=== PATIENT | male | born 1945 | race Caucasian/White ===

== ENCOUNTER 2022-10-10 10:37 | Inpatient (IN) ==
--- NOTE | 2022-10-10 11:58 | DR.GENAD ---
HPI Time Seen Time Seen by Provider: 10/10/22 11:57 PCP Primary Care Physician: Vlad HPI Comment HPI Comment: Pt accompanied by daughter.Acccording to her ,patient has hx of hemorrhagic stroke .has been basically bedbound .Has noticed dependent edema on his back and legs.Patient was started on lasix and currently on lasix 40 2 x per day .Family concerned that swelling has worsened .Here to have him checked .Pt was noted to have oxygen sat initially but then improved with use of oxygen to 2 L Complaint/Symptoms Chief Complaint Doctors Comments: swelling over his legs and groin Chief Complaint:: Patient's daughter states that he has been having increasing edema the past 2-3 weeks now. His primary prescribed lasix 40mg PO per day, but his urine output has become deminished as well as his intake. He presents with +5 pitting edema in his bilateral extremeties, and +3 pitting edema in his left arm. The daughter also states that he has become confused over the past 2-3 days. Nurses notes reviewed Nurses Notes Review: Yes Source History Provided: Family Member Mode of Arrival Mode of Arrival: Wheelchair Timing Onset of Chief Complaint: 09/24/22 Came on: Gradually Duration Duration: Since Onset Duration: Weeks Severity Severity: Moderate PMH PMH Past Medical History: Yes Past Medical History: Coronary Artery Disease, CVA, Diabetes, Hypertension and [place] Past Medical History Comment: enlarged prostate Past Surgical History: Yes Surgical History: Angioplasty/Stents and Tonsillectomy Family History History of Family Medical Conditions: Yes Family Medical History: Diabetes Mellitus, Cancer, [place] and Coronary Artery Disease Social History Does patient currently use any type of tobacco product: No Have you used tobacco products in the last 12 months: No Type of Tobacco Use: None Does any household member use tobacco: No Alcohol Use: None Do you use any recreational Drugs:: No Lives With: Family Lives Where: Home Infectious screening In the last 2 months have you had wt loss of >10#?: NO Have you had fever, night sweats or hemotysis?: No Have you traveled outside the country in the last 6 months?: No Isolation: Standard ROS Review of Systems Constitutional: No Symptoms Reported Eyes: No Symptoms Reported ENTM: No Symptoms Reported Respiratoy: Short of Breath Cardiovascular: No Symptoms Reported Gastrointestinal/Abdominal: No Symptoms Reported Genitourinary: No Symptoms Reported Neurological: No Symptoms Reported Musculoskeletal: No Symptoms Reported Integumentary: No Symptoms Reported Endocrine: No Symptoms Reported PE Vital Signs Vitals: Temperature 98.2 F Pulse Rate [Left] 70 Pulse Rate 66 Respiratory Rate 21 Blood Pressure [Left Arm] 135/74 Blood Pressure 131/79 O2 Sat by Pulse Oximetry 95 General Limitations: No Limitations General Appearance: Alert and In No Apparent Distress Head Head Exam: Normal Inspection, Atraumatic and Normocephalic Eyes Eye exam: Normal Appearance, PERRL and EOMI ENT ENT Exam: Normal Exam, Normal Oropharynx and Normal External Ear Exam External Ear Exam: Normal External Inspection TM/Canal Exam: Bilateral: Normal Neck Neck Exam: Normal Inspection and Full ROM Chest Chest Inspection: Normal Inspection and Symmetric Chest Wall Rise Respiratory Respiratory Exam: Bilateral: Crackles (no use of acessory muscles of respirations ) Cardiovascular Cardiovascular Exam: +S1 and +S2 Abdominal Exam Abdominal Exam: Soft and Other (protuberant ) Extremities Extremities Exam: Edema Neurologic Neurological Exam: Alert Skin Skin Exam: Normal Color MDM Additional Information Findings: bedbound Differential Diagnosis Differential Diagnosis: peripheral and dependednt edema,shortness of breath.abnormal lung sounds ROR Labs Reviewed Result Diagrams: 10/10/22 12:28 10/10/22 12:28 Laboratory: WBC 6.1 X10^3/uL (3.6-10.0) 10/10/22 12:28 RBC 3.50 X10^6/uL (4.7-6.0) L 10/10/22 12:28 Hgb 10.1 g/dL (13.5-18.0) L 10/10/22 12:28 Hct 30.6 % (42.0-54.0) L 10/10/22 12:28 MCV 87.5 fL (80.0-100.0) 10/10/22 12:28 MCH 29.0 pg (27.0-34.0) 10/10/22 12:28 MCHC 33.1 g/dL (33.0-35.0) 10/10/22 12:28 RDW 14.1 % (11.6-16.5) 10/10/22 12:28 Plt Count 185 X10^3/uL (150.0-450.0) 10/10/22 12:28 MPV 8.4 fL (7.4-11.0) 10/10/22 12: Neut % (Auto) 62.3 % (42.0-75.0) 10/10/22 12:28 Lymph % (Auto) 27.1 % (21.0-51.0) 10/10/22 12:28 [place] % (Auto) 8.4 % (0.0-13.0) 10/10/22 12: Eos % (Auto) 1.8 % (0.9-2.9) 10/10/22 12:28 Baso % (Auto) 0.4 % (0.2-1.0) 10/10/22 12:28 Neut # (Auto) 3.8 x10^3/uL (2.2-4.8) 10/10/22 12: Lymph # (Auto) 1.7 X10^3/uL (1.3-2.9) 10/10/22 12: [place] # (Auto) 0.5 x10^3/uL (0.3-0.8) 10/10/22 12:28 Eos # (Auto) 0.1 x10^3/uL (0.0-0.2) 10/10/22 12:28 Baso # (Auto) 0.0 X10^3/uL (0.0-0.1) 10/10/22 12:28 Absolute Nucleated RBC 0.0 /100WBC 10/10/22 12:28 D-Dimer 1.48 ug/ml (0.0-0.57) H 10/10/22 12:50 Sodium 140 mmol/L (136-145) 10/10/22 12:28 Corrected Sodium 140 mmol/L (136-145) 10/10/22 12:28 Potassium 4.8 mmol/L (3.5-5.1) 10/10/22 12:28 Chloride 103 mmol/L (98-107) 10/10/22 12:28 Carbon Dioxide 32.2 mmol/L (21-32) H 10/10/22 12:28 BUN 34 mg/dL (7-18) H 10/10/22 12:28 Creatinine 1.58 mg/dL (0.70-1.30) H 10/10/22 12:28 Est GFR (MDRD) Af Amer 55 (>60) L 10/10/22 12:28 Est GFR (MDRD) Non-Af 45 (>60) L 10/10/22 12:28 Glucose 115 mg/dL (65-99) H 10/10/22 12:28 Hemoglobin A1c 6.1 % 10/10/22 12:28 Calcium 8.2 mg/dL (8.5-10.1) L 10/10/22 12:28 Corrected Calcium 8.9 mg/dL (8.5-10.1) 10/10/22 12:28 Total Bilirubin 0.30 mg/dL (0.2-1.0) 10/10/22 12:28 AST 15 Units/L (15-37) 10/10/22 12:28 ALT 16 Units/L (12-78) 10/10/22 12:28 Alkaline Phosphatase 78 Units/L (46-116) 10/10/22 12:28 Creatine Kinase 73 Units/L (39-308) 10/10/22 12:28 Troponin I High Sens 14.5 ng/L (4.0-60.0) 10/10/22 12:28 Troponin I High Sens 15.1 ng/L (4.0-60.0) 10/10/22 12:28 B-Natriuretic Peptide 313 pg/mL (0-79) H 10/10/22 12:28 Total Protein 6.6 g/dL (6.4-8.2) 10/10/22 12:28 Albumin 3.1 g/dL (3.4-5.0) L 10/10/22 12:28 Globulin 3.5 g/dL (2.5-4.5) 10/10/22 12:28 Albumin/Globulin Ratio 0.9 Ratio (1.1-2.1) L 10/10/22 12:28 TSH 3rd Generation 4.859 uIU/mL (0.358-3.74) H 10/10/22 12:28 Opioid Opioid Risk Tool Total: 0 Total Score Risk Category: Low Risk Copyright: Scotty OLIVER predicting aberrant behaviors Discharge Plan Diagnosis Discharge Problem: Community acquired pneumonia, Anemia, Abnormal TSH, Dependent edema, Pleural effusion, CHF, acute Discharge Plan Patient Disposition: 09 ADMITTED INPATIENT Condition: Stable Prescriptions: No Action acetaminophen-codeine 300-30 mg tablet 1 tab PO Q6H PRN (Reason: pain) Qty: 14 0RF cyclobenzaprine 10 mg tablet 10 mg PO TID Qty: 30 0RF Health Concerns: Post Hospitalization: new medications and changes needed to prevent readmission or further decline. Pt educated and given instructions on all concerns. Plan of Treatment: Continue with present treatment and follow up plan. Pt is to keep follow up appointment as instructed and take medications as ordered. Orders to Discharge Patient Discharge Orders: Transfer (Routine); Ordered 10/10/22 Ordered By: Jose Yip Follow ups/Referrals Follow ups/Referrals: Everett Murillo [Primary Care Provider] - 3 days ADDITIONAL NOTES Additional Notes Additional Notes: anemia ,hypothyroidism ,renal failure,community Acquired pneumoia ,pleural effusion ,depenedent edema .spoke with dr ortiz agreed to admit patient
[2022-10-10 12:56] LABS: BASOPHILS % (AUTO) 0.4 % (0.2-1.0); EOSINOPHILS # (AUTO) 0.1 x10^3/uL (0.0-0.2); EOSINOPHILS % (AUTO) 1.8 % (0.9-2.9); HEMATOCRIT 30.6 % (42.0-54.0); HEMOGLOBIN 10.1 g/dL (13.5-18.0); LYMPHOCYTES # (AUTO) 1.7 X10^3/uL (1.3-2.9); LYMPHOCYTES % (AUTO) 27.1 % (21.0-51.0); MEAN CORPUSCULAR HGB CONC 33.1 g/dL (33.0-35.0); MEAN CORPUSCULAR VOLUME 87.5 fL (80.0-100.0); MEAN PLATELET VOLUME 8.4 fL (7.4-11.0); MONOCYTES # (AUTO) 0.5 x10^3/uL (0.3-0.8); MONOCYTES % (AUTO) 8.4 % (0.0-13.0); NEUTROPHILS # (AUTO) 3.8 x10^3/uL (2.2-4.8); NEUTROPHILS % (AUTO) 62.3 % (42.0-75.0); RED CELL DISTRIBUTION WIDTH 14.1 % (11.6-16.5); WHITE BLOOD COUNT 6.1 X10^3/uL (3.6-10.0)
[2022-10-10 13:06] LABS: HEMOGLOBIN A1C 6.1 %
[2022-10-10 13:07] LABS: CARBON DIOXIDE 32.2 mmol/L (21-32); CREATININE 1.58 mg/dL (0.70-1.30)
[2022-10-10 13:08] LABS: ALBUMIN 3.1 g/dL (3.4-5.0); CALCIUM 8.2 mg/dL (8.5-10.1); COR CA(FOR HYPOALB) 8.9 mg/dL (8.5-10.1); TOTAL PROTEIN 6.6 g/dL (6.4-8.2)
[2022-10-10 13:22] LABS: TSH (3RD GENERATION) 4.859 uIU/mL (0.358-3.74)
--- NOTE | 2022-10-10 14:03 | RAD ---
HISTORYMED HX OF CAD HTN DM AK.br sob, decreased urine outputSTUDYCHEST, 1 VIEWCOMPARISONNoneFINDINGSThe trachea is midline. The cardiac silhouette is enlarged. The lungs demonstrate some asymmetric density in the right mid lower lung zones probably due pneumonia left lung appears relatively clear. The bony thorax is unremarkable.IMPRESSIONProbable right mid and lower lung zone pneumonia as aboveElectronically signed by: GENIA CABRERA (Oct 10, 2022 14:01:59)
--- NOTE | 2022-10-10 15:16 | CT ---
HISTORYSOB, ELEVATED D-DIMERSTUDYCTA CHESTCOMPARISONOne-view of the chest performed today.TECHNIQUEMultiple axial images of the chest were obtained from the thoracic inlet to the upper abdomen after the administration of IV contrast. 3D reconstructions utilizing axial MIPS imaging was performed and reviewed. Dose reduction techniques including Automated Exposure Control (AEC) and adjustment of mA and kV were utilized.FINDINGSPulmonary arteries: There is fair opacification of the pulmonary arteries to the subsegmental level without evidence of pulmonary emboli.Thoracic aorta: No acute findings. Normal caliber of the aorta with moderate generalized atherosclerosis.Heart/mediastinum: Normal heart size without a significant pericardial effusion. No mass or lymphadenopathy.Lungs: Moderate/large pleural effusions are noted, right slightly greater than left, with associated atelectasis. Mild interlobular septal thickening is present, consistent with edema. No suspicious area of consolidation. No suspicious nodule or mass. No pneumothorax.Upper abdomen: No significant abnormality.Bones: No significant abnormality.Additional findings: None.IMPRESSION1. No CT evidence of pulmonary emboli.2. Moderate/large pleural effusions with mild interstitial edema and additional findings as above.Electronically signed by: Rubens Dobbs (Oct 10, 2022 15:14:33)
[2022-10-10] MEDS ORDERED: LEVAQUIN PREMIX IV 250 MG 250 MG/50 ML BAG IV SCH (17:00)
[2022-10-10] MEDS ORDERED: LASIX IVP ONE (17:54)
[2022-10-10] MEDS ORDERED: COREG TAB 25 MG ONE ×2 (17:54→18:24)
[2022-10-10] MEDS ORDERED: LEVAQUIN PREMIX IV 250 MG 250 MG/50 ML BAG IV ONE (17:55)
[2022-10-10] MEDS ORDERED: NS 250 ML IV 250 ML IV ONE (17:57)
[2022-10-10 17:58] VITALS: BMI 33.1
[2022-10-10] MEDS ORDERED: COREG TAB 25 MG PO SCH (18:00)
[2022-10-10] MEDS: LEVAQUIN PREMIX IV 250 MG 250 MG/50 ML BAG IV SCH (18:08)
[2022-10-10] MEDS: LASIX IVP SCH (18:11)
[2022-10-10] MEDS ORDERED: DUONEB 0.5 MG/3 MG (3 mL) NEB ONE (20:39)
[2022-10-10] MEDS ORDERED: PULMICORT NEB TX 0.5 MG NEB ONE (20:39)
[2022-10-10] MEDS: PULMICORT NEB TX 0.5 MG NEB SCH (20:50)
[2022-10-10] MEDS: DUONEB 0.5 MG/3 MG (3 mL) NEB SCH (20:50)
[2022-10-10] MEDS ORDERED: CARDURA PO SCH (21:00)
[2022-10-11] MEDS: DUONEB 0.5 MG/3 MG (3 mL) NEB SCH ×6 (01:03→21:00)
[2022-10-11 06:13] LABS: BASOPHILS % (AUTO) 0.5 % (0.2-1.0); EOSINOPHILS # (AUTO) 0.2 x10^3/uL (0.0-0.2); EOSINOPHILS % (AUTO) 2.9 % (0.9-2.9); HEMATOCRIT 29.7 % (42.0-54.0); HEMOGLOBIN 9.7 g/dL (13.5-18.0); LYMPHOCYTES # (AUTO) 1.6 X10^3/uL (1.3-2.9); LYMPHOCYTES % (AUTO) 27.8 % (21.0-51.0); MEAN CORPUSCULAR HEMOGLOBIN 28.6 pg (27.0-34.0); MEAN CORPUSCULAR HGB CONC 32.8 g/dL (33.0-35.0); MEAN PLATELET VOLUME 8.4 fL (7.4-11.0); MONOCYTES # (AUTO) 0.7 x10^3/uL (0.3-0.8); MONOCYTES % (AUTO) 11.7 % (0.0-13.0); NEUTROPHILS # (AUTO) 3.2 x10^3/uL (2.2-4.8); NEUTROPHILS % (AUTO) 57.1 % (42.0-75.0); RED BLOOD COUNT 3.41 X10^6/uL (4.7-6.0); RED CELL DISTRIBUTION WIDTH 13.6 % (11.6-16.5); WHITE BLOOD COUNT 5.6 X10^3/uL (3.6-10.0)
[2022-10-11 06:17] LABS: ALANINE AMINOTRANSFERASE 12 Units/L (12-78); ALBUMIN 2.9 g/dL (3.4-5.0); ALKALINE PHOSPHATASE 76 Units/L (46-116); ASPARTATE AMINO TRANSFERASE 14 Units/L (15-37); BLOOD UREA NITROGEN 24 mg/dL (7-18); CALCIUM 8.1 mg/dL (8.5-10.1); CARBON DIOXIDE 31.2 mmol/L (21-32); CHLORIDE 104 mmol/L (98-107); CREATININE 1.13 mg/dL (0.70-1.30); SODIUM 142 mmol/L (136-145); TOTAL PROTEIN 6.3 g/dL (6.4-8.2); eGFR NON BLACK RACES > 60 (>60)
--- NOTE | 2022-10-11 07:23 | RAD ---
HISTORYSOBSTUDYAP chestCOMPARISONDecember 2021FINDINGSStable heart size. There is no significant change in extent or distribution of bilateral pulmonary infiltrates especially lower lobes. There is no new consolidation, complicating extrapulmonary air or large pleural effusion.IMPRESSIONStable appearance of bilateral pneumonia.Electronically signed by: RATNA TRACY (Oct 11, 2022 07:21:56)
[2022-10-11] MEDS ORDERED: KLONOPIN TAB 1 MG PO PRN (08:16)
[2022-10-11] MEDS: PULMICORT NEB TX 0.5 MG NEB SCH ×2 (08:55→21:00)
[2022-10-11] MEDS ORDERED: COREG TAB 25 MG PO SCH (09:00)
[2022-10-11] MEDS ORDERED: GLUCOPHAGE ONE (09:28)
[2022-10-11] MEDS: COZAAR PO SCH (09:36)
[2022-10-11] MEDS: NORVASC TAB 10 MG PO SCH (09:36)
[2022-10-11] MEDS: LEVAQUIN PREMIX IV 250 MG 250 MG/50 ML BAG IV SCH (09:36)
[2022-10-11] MEDS: VITAMIN C PO SCH (09:37)
[2022-10-11] MEDS: COREG TAB 25 MG PO SCH ×2 (09:37→20:11)
[2022-10-11] MEDS: GLUCOTROL PO SCH ×2 (09:38→20:11)
[2022-10-11] MEDS: CLARITIN PO SCH (09:39)
[2022-10-11] MEDS: LASIX IVP SCH ×2 (09:47→17:30)
[2022-10-11] MEDS: GLUCOPHAGE PO SCH (09:48)
[2022-10-11] MEDS ORDERED: NS 250 ML IV 250 ML IV ONE (18:48)
[2022-10-11] MEDS: ALBUMIN HUMAN 25%- 100 ML 100 ML IV SCH (18:55)
[2022-10-11] MEDS: LIPITOR TAB 80 MG PO SCH (20:11)
[2022-10-11] MEDS: SNACK - Diabetic Appropriate PO SCH (20:11)
[2022-10-11] MEDS: CARDURA PO SCH (20:11)
[2022-10-12] MEDS: DUONEB 0.5 MG/3 MG (3 mL) NEB SCH ×6 (00:17→21:00)
[2022-10-12 06:34] LABS: BASOPHILS % (AUTO) 0.5 % (0.2-1.0); EOSINOPHILS # (AUTO) 0.2 x10^3/uL (0.0-0.2); EOSINOPHILS % (AUTO) 3.2 % (0.9-2.9); HEMATOCRIT 29.4 % (42.0-54.0); HEMOGLOBIN 9.8 g/dL (13.5-18.0); LYMPHOCYTES # (AUTO) 1.9 X10^3/uL (1.3-2.9); LYMPHOCYTES % (AUTO) 34.1 % (21.0-51.0); MEAN CORPUSCULAR HEMOGLOBIN 28.7 pg (27.0-34.0); MEAN CORPUSCULAR HGB CONC 33.4 g/dL (33.0-35.0); MEAN CORPUSCULAR VOLUME 85.8 fL (80.0-100.0); MEAN PLATELET VOLUME 8.2 fL (7.4-11.0); MONOCYTES # (AUTO) 0.6 x10^3/uL (0.3-0.8); MONOCYTES % (AUTO) 11.6 % (0.0-13.0); NEUTROPHILS # (AUTO) 2.8 x10^3/uL (2.2-4.8); NEUTROPHILS % (AUTO) 50.6 % (42.0-75.0); RED BLOOD COUNT 3.42 X10^6/uL (4.7-6.0); RED CELL DISTRIBUTION WIDTH 13.6 % (11.6-16.5); WHITE BLOOD COUNT 5.5 X10^3/uL (3.6-10.0)
[2022-10-12 06:47] LABS: ALANINE AMINOTRANSFERASE 13 Units/L (12-78); ALKALINE PHOSPHATASE 70 Units/L (46-116); ASPARTATE AMINO TRANSFERASE 12 Units/L (15-37); BLOOD UREA NITROGEN 21 mg/dL (7-18); CARBON DIOXIDE 33.4 mmol/L (21-32); CHLORIDE 104 mmol/L (98-107); COR CA(FOR HYPOALB) 8.8 mg/dL (8.5-10.1); CREATININE 1.11 mg/dL (0.70-1.30); SODIUM 145 mmol/L (136-145); TOTAL PROTEIN 6.3 g/dL (6.4-8.2); eGFR NON BLACK RACES > 60 (>60)
--- NOTE | 2022-10-12 07:12 | RAD ---
HISTORYSOB PNEUMONIA Relevant Clinical InformationSTUDYCHEST, 1 [id number]/18/2022FINDINGSThe trachea is midline. The cardiac silhouette is unremarkable. Bibasilar pneumonic infiltrates improved from previous 10/11/2022. The bony thorax is unremarkable.IMPRESSIONImproving bibasilar infiltrates.Electronically signed by: Dontae Frankel (Oct 12, 2022 07:11:00)
[2022-10-12] MEDS: LEVAQUIN PREMIX IV 250 MG 250 MG/50 ML BAG IV SCH (08:13)
[2022-10-12] MEDS: ALBUMIN HUMAN 25%- 100 ML 100 ML IV SCH (08:16)
[2022-10-12] MEDS: NORVASC TAB 10 MG PO SCH (08:17)
[2022-10-12] MEDS: COZAAR PO SCH (08:17)
[2022-10-12] MEDS: VITAMIN C PO SCH (08:18)
[2022-10-12] MEDS: GLUCOTROL PO SCH ×2 (08:18→20:03)
[2022-10-12] MEDS: CLARITIN PO SCH (08:18)
[2022-10-12] MEDS: COREG TAB 25 MG PO SCH ×2 (08:18→20:02)
[2022-10-12] MEDS: PULMICORT NEB TX 0.5 MG NEB SCH ×2 (08:47→21:00)
[2022-10-12] MEDS: LASIX IVP SCH ×2 (09:12→16:30)
[2022-10-12] MEDS ORDERED: POTASSIUM CHLORIDE LIQ 20 MEQ UDC PO PRN (10:07)
[2022-10-12] MEDS ORDERED: POTASSIUM CHL 60 MEQ/NS 0.45% 500 ML IV PRN (10:07)
[2022-10-12] MEDS ORDERED: POTASSIUM CHL 40 MEQ/NS 0.45% 500 ML IV PRN (10:07)
[2022-10-12] MEDS ORDERED: KLOR-CON PO PRN (10:07)
[2022-10-12] MEDS ORDERED: MICRO K EXTEN CAP 10 MEQ PO PRN (10:07)
[2022-10-12] MEDS ORDERED: K-RIDER 10 MEQ/NS 100 ML 10 MEQ/100 ML BAG IV PRN (10:07)
[2022-10-12] MEDS: K-DUR TAB 20 MEQ PO PRN (11:25)
--- NOTE | 2022-10-12 18:29 | DR.H&P ---
H&P - History & Physical for Day of: H&P Date: 10/10/22 - Chief Complaint Chief Complaint: EDEMA, SHORTNESS OF BREATH - History of Present Illness History of Present Illness: IS A 77 YEAR OLD PATIENT OF OURS. HE PRESENTED TO THE ER VIA PERSONAL VEHICLE WITH COMPLAINTS OF SHORTNESS OF BREATH AND LOWER EXTREMITY EDEMA. PATIENTS DAUGHTER REPORTED THAT PATIENT HAS HAD INCREASED UPPER AND LOWER EXTREMITY EDEMA AND SHORTNESS OF BREATH FOR THE PAST 2-3 WEEKS. SHE REPORTS THAT HIS LASIX WAS RECENTL INCREASED TO 40MG TWICE A DAY, HOWEVER, THEY BELIEVE THAT THE SWELLING HAS WORSENED. THEY REPORT THAT HIS ORAL INTAKE HAS DECREASED, WELL HIS URINE OUTPATIENT. ON ARRIVAL TO THE ER, PATIENT WAS NOTED TO BE HYPOXIC WITH OXYGEN SATURATIONS IN THE 70s. PATIENT WAS NOTED TO HAVE 3+ PITTING EDEMA IN BILATERAL LOWER EXTREMITIES AND TO THE LEFT ARM. ON ARRIVAL TO THE HOSPITAL, VITALS WERE: 98.0-66-19-77%-136/63. HE WAS PLACED ON OXYGEN VIA NASAL CANNULA AT 2 LPM. SATURATIONS INCREASED TO THE 90s. LABS WERE OBTAINED. WBC 6.1, RBC 3.50, HGB 10.1, HCT 30.6, D-DIMER 1.48, SODIUM 140, POTASSIUM 4.8, CHLORIDE 103, CARBON DIOXIDE 32.2, BUN 34, CREATININE 1.58, GLUCOSE 115, CALCIUM 8.2, AST 15, ALT 16, ALK PHOS 78, BNP 313, TOTAL PROTEIN 6.6, ALBUMIN 3.1, TSH 4.859. A RESPIRATORY VIRAL PANEL WAS SET UP. A CHEST XRAY WAS OBTAINED AND REVEALED: The trachea is midline. The cardiac silhouette is enlarged. The lungs demonstrate some asymmetric density in the right mid lower lung zones probably due pneumonia left lung appears relatively clear. The bony thorax is unremarkable. A CHEST CTA WAS OBTAINED AND REVEALED: 1. No CT evidence of pulmonary emboli. 2. Moderate/large pleural effusions with mild interstitial edema. HE WAS ADMITTED TO THE HOSPITAL INPATIENT STATUS FOR FURTHER EVALUATION AND TREATMENT OF PNEUMONIA, CHF EXACERBATION, HYPOALBUMINEMIA, AND HYPOTHYROIDISM. HE WAS STARTED ON LEVAQUIN 250MG IV DAILY, ALBUMIN 25% IV DAILY, DUONEBS Q4H, PULMICORT NEBS BID, THE POTASSIUM PROTOCOLS, LASIX 40MG IV BID, AND HIS HOME MEDICATIONS WERE RESUMED. OTHERWISE, WE WILL FOLLOW-UP WITH AM LABS AND CONTINUE TO MONITOR. TIME SPENT ON CLINICAL ASSESSMENT, REVIEWING LABS AND IMAGING, DECISION MAKING, AND DOCUMENTATION GREATER THAN 75 MINUTES. - Past Medical History Past Medical History: CHF, Coronary Artery Disease, CVA, Diabetes, Hypertension, [place] - Past Surgical History Surgical History: Angioplasty/Stents, Tonsillectomy - Family History Family Medical History: Diabetes Mellitus, Cancer, [place], Coronary Artery Disease - Social History Does patient currently use any type of tobacco product: No Have you used tobacco products in the last 12 months: No Type of Tobacco Use: None Does any household member use tobacco: No Alcohol Use: None Drug Use: None - Medications Home Medications: No Known Drug Allergies Allergy (Verified 04/07/19 09:42) CONTINUE taking the following medications amlodipine 10 mg tablet 1 tab PO QDAY 10/10/22 [History] ascorbic acid (vitamin C) 1,000 mg tablet (Vitamin C) 1,000 mg PO DAILY 10/10/22 [History] atorvastatin 80 mg tablet 80 mg PO HS 10/10/22 [History] carvedilol 25 mg tablet 2 tab PO BID 10/10/22 [History] clonazepam 1 mg tablet 1 tab PO HS PRN Sleep 10/10/22 [History] diphenhydramine 25 mg-acetaminophen 500 mg tablet (Tylenol PM Extra Strength) 1 - 2 tab PO HS PRN Sleep 10/10/22 [History] doxazosin 8 mg tablet 0.5 tab PO HS 10/10/22 [History] furosemide 20 mg tablet 1 tab PO BID 10/10/22 [History] glipizide 5 mg tablet 5 mg PO BID 10/10/22 [History] loratadine 10 mg tablet 10 mg PO QDAY 10/10/22 [History] losartan 100 mg tablet 100 mg PO DAILY 10/10/22 [History] metformin 500 mg tablet 1 tab PO BID 10/10/22 [History] - Review of Systems Constitutional: Weakness Eyes: No Symptoms Reported ENT: No Symptoms Reported Respiratory: Shortness of Breath, SOB with Excertion Cardiovascular: Edema (UPPER AND LOWER EXTREMITIES ) Gastrointestinal: No Symptoms Reported Genitourinary: No Symptoms Reported Musculoskeletal: No Symptoms Reported Skin: No Symptoms Reported Neurological: Weakness, Confusion - Physical Exam Vital Signs: Temperature 97.6 F Pulse Rate [Left] 61 Pulse Rate 58 Respiratory Rate 20 Blood Pressure [Left Arm] 141/67 Blood Pressure 131/79 O2 Sat by Pulse Oximetry 92 Oriented: Person, Place Eyes: Normal Ear: Normal Nose: Normal Throat: Normal Respiratory: Diminished Throughout Cardiovascular: Edema (BLE 3+ PITTING EDEMA, LEFT ARM 3+ PITTING EDEMA ) : Normal Auscultation: Bowel Sounds: Normal Palpation: Normal Tenderness: Normal Skin: Normal Musculoskeletal: Normal Psychiatric: Normal Mood Description: Calm Affect: Normal Speech Pattern: Clear - Assessment/Plan (1) Community acquired pneumonia Qualifiers: Laterality: right Lung location: middle lobe of lung Qualified Code(s): J18.9 - Pneumonia, unspecified organism Status: Acute Plan: ADMIT, SUPPLEMENTAL OXYGEN, LEVAQUIN 250MG IV DAILY, ALBUMIN 25% IV DAILY, DUONEBS Q4H, PULMICORT NEBS BID, THE POTASSIUM PROTOCOLS, LASIX 40MG IV BID, AND HIS HOME MEDICATIONS WERE RESUMED. (2) Anemia Qualifiers: Anemia type: iron deficiency Iron deficiency anemia type: chronic blood loss Qualified Code(s): D50.0 - Iron deficiency anemia secondary to blood loss (chronic) Status: Acute (3) CHF, acute Qualifiers: Heart failure type: unspecified Qualified Code(s): I50.9 - Heart failure, unspecified Status: Acute (4) Hypoalbuminemia Status: Acute (5) Abnormal TSH Status: Acute - Allergies Allergies/Adverse Reactions: Allergies Allergy/AdvReac Type Severity Reaction Status Date / Time No Known Drug Allergies Allergy Verified 04/07/19 09:42
[2022-10-12] MEDS: CARDURA PO SCH (20:02)
[2022-10-12] MEDS: SNACK - Diabetic Appropriate PO SCH (20:03)
[2022-10-12] MEDS: LIPITOR TAB 80 MG PO SCH (20:03)
[2022-10-13] MEDS: DUONEB 0.5 MG/3 MG (3 mL) NEB SCH ×6 (01:27→20:55)
[2022-10-13 06:19] LABS: BASOPHILS % (AUTO) 0.4 % (0.2-1.0); EOSINOPHILS # (AUTO) 0.2 x10^3/uL (0.0-0.2); EOSINOPHILS % (AUTO) 3.9 % (0.9-2.9); HEMATOCRIT 28.9 % (42.0-54.0); HEMOGLOBIN 9.5 g/dL (13.5-18.0); LYMPHOCYTES # (AUTO) 1.9 X10^3/uL (1.3-2.9); LYMPHOCYTES % (AUTO) 33.3 % (21.0-51.0); MEAN CORPUSCULAR HEMOGLOBIN 28.7 pg (27.0-34.0); MEAN PLATELET VOLUME 8.2 fL (7.4-11.0); MONOCYTES # (AUTO) 0.6 x10^3/uL (0.3-0.8); MONOCYTES % (AUTO) 10.7 % (0.0-13.0); NEUTROPHILS % (AUTO) 51.7 % (42.0-75.0); RED BLOOD COUNT 3.32 X10^6/uL (4.7-6.0); WHITE BLOOD COUNT 5.8 X10^3/uL (3.6-10.0)
[2022-10-13 06:29] LABS: ALANINE AMINOTRANSFERASE 14 Units/L (12-78); ALBUMIN 3.2 g/dL (3.4-5.0); ALKALINE PHOSPHATASE 63 Units/L (46-116); ASPARTATE AMINO TRANSFERASE 12 Units/L (15-37); BLOOD UREA NITROGEN 20 mg/dL (7-18); CALCIUM 8.2 mg/dL (8.5-10.1); CARBON DIOXIDE 35.5 mmol/L (21-32); CHLORIDE 104 mmol/L (98-107); COR CA(FOR HYPOALB) 8.8 mg/dL (8.5-10.1); CREATININE 1.09 mg/dL (0.70-1.30); SODIUM 146 mmol/L (136-145); TOTAL PROTEIN 6.4 g/dL (6.4-8.2); eGFR NON BLACK RACES > 60 (>60)
--- NOTE | 2022-10-13 07:59 | RAD ---
HISTORYPneumonia, shortness of breathSTUDYChest AP [id number]/2022FINDINGSThe heart is upper limits normal in size. No definite congestive heart failure is noted. The candice are normal. Hazy right basilar lung infiltrate is unchanged. There is persistent increased density retrocardiac area of the left lower lobe which could be on the basis of atelectasis, consolidation, pleural effusion, or combination. Left upper lung field is clear. Bony thorax is unremarkable.IMPRESSIONNo significant change from the prior examinationElectronically signed by: PADDY STOKES (Oct 13, 2022 07:57:09)
[2022-10-13] MEDS: ALBUMIN HUMAN 25%- 100 ML 100 ML IV SCH (08:28)
[2022-10-13] MEDS: VITAMIN C PO SCH (08:31)
[2022-10-13] MEDS: LEVAQUIN PREMIX IV 250 MG 250 MG/50 ML BAG IV SCH (08:31)
[2022-10-13] MEDS: GLUCOTROL PO SCH ×2 (08:31→20:05)
[2022-10-13] MEDS: NORVASC TAB 10 MG PO SCH (08:31)
[2022-10-13] MEDS: CLARITIN PO SCH (08:32)
[2022-10-13] MEDS: K-DUR TAB 20 MEQ PO PRN (08:32)
[2022-10-13] MEDS: COZAAR PO SCH (08:32)
[2022-10-13] MEDS: COREG TAB 25 MG PO SCH ×2 (08:32→20:06)
[2022-10-13] MEDS: LASIX IVP SCH ×2 (08:32→16:23)
[2022-10-13] MEDS: PULMICORT NEB TX 0.5 MG NEB SCH ×2 (08:40→20:55)
[2022-10-13] MEDS ORDERED: GLUCOPHAGE ONE ×2 (10:02→19:59)
[2022-10-13] MEDS: GLUCOPHAGE PO SCH ×2 (10:04→20:06)
[2022-10-13] MEDS: CARDURA PO SCH (20:05)
[2022-10-13] MEDS: LIPITOR TAB 80 MG PO SCH (20:05)
[2022-10-13] MEDS: SNACK - Diabetic Appropriate PO SCH (20:06)
--- NOTE | 2022-10-13 20:44 | PCM.PROG ---
Progress Note - Progress Note for Day of Date of Exam: 10/12/22 - Subjective Subjective: IS CURRENTLY INPATIENT STATUS FOR [facility] AQUIRED PNEUMONIA, ANEMIA, CHF EXACERBATION, AND HYPOALBUMINEMIA. TODAY, HE IS ALERT AND ORIENTED, LYING IN BED ON MORNING ROUNDS. HE COMPLAINS OF PERSISTENT SHORTNESS OF BREATH AND WEAKNESS TODAY. HE DOES REPORT SLIGHT IMPROVEMENT IN SYMTPOMS SINCE ADMISSION. HE HAS HAD A MILD, NON-PRODUCTIVE COUGH. HE REPORTS THAT SHORTNESS OF BREATH IS WORSE ON EXERTION. ON EXAMINATION, HEART IS REGULAR IN RATE AND RHYTHM. BILATERAL LUNGS ARE NOTED WITH DIMINISHED LUNG SOUNDS THROUGHOUT. ABDOMEN IS ROUND, SOFT, AND NON-TENDER WITH NORMAL BOWEL SOUNDS NOTED IN ALL QUADRANTS. BILATERAL LOWER EXTREMITIES ARE NOTED WITH 2+ PITTING EDEMA THIS MORNING. THIS HAS SLIGHTLY IMPROVED SINCE YESTERDAY. HIS VITALS THIS MORNING ARE: 97.8-61-20-95%-128/61. HE IS CURRENTLY UTILIZING OXYGEN VIA NASAL CANNULA AT 2 LPM. LABS WERE OBTAINED. WBC 5.5, RBC 3.42, HGB 9.8, HCT 29.4, PLT COUNT 176, SODIUM 145, POTASSIUM 3.6, CHLORIDE 104, CARBON DIOXIDE 33.4, BUN 21, CREATININE 1.11, GLUCOSE 77, CALCIUM 8.0, AST 12, ALT 13, ALK PHOS 70, BNP 233, TOTAL PROTEIN 6.3, ALBUMIN 3.0. AIT RESPIRATORY PANEL REVEALED STREPTOCOCCUS PNEUMONIAE. A CHEST XRAY WAS OBTAINED AND REVEALED: The trachea is midline. The cardiac silhouette is unremarkable. Bibasilar pneumonic infiltrates improved from previous 10/11/2022. The bony thorax is unremarkable. HE IS CURRENTLY RECEIVING LEVAQUIN 250MG IV DAILY, ALBUMIN 25% IV DAILY, DUONEBS Q4H, PULMICORT NEBS BID, THE POTASSIUM PROTOCOLS, LASIX 40MG IV BID, AND HIS HOME MEDICATIONS WERE RESUMED. WE WILL CONTINUE WITH CURRENT PLAN OF CARE TODAY. OTHERWISE, WE WILL FOLLOW-UP WITH AM LABS AND CONTINUE TO MONITOR. TIME SPENT ON CLINICAL ASSESSMENT, REVIEWING LABS AND IMAGING, DECISION MAKING, AND DOCUMENTATION GREATER THAN 45 MINUTES. - Past Medical Family Social History Past Med/Fam/Surg Hx: No changes since H&P Allergies: Allergies No Known Drug Allergies Allergy (Verified 04/07/19 09:42) - Review of Systems ROS: No change since H&P - Vital Signs and I&O's Vital Signs: Temperature 97.3 F Pulse Rate [Left] 54 Pulse Rate 89 Respiratory Rate 18 Blood Pressure [Left Arm] 138/62 Blood Pressure 131/79 O2 Sat by Pulse Oximetry 95 Intake and Output: Intake & Output 10/11/22 10/12/22 10/13/22 10/14/22 11:59 11:59 11:59 11:59 Intake Total 575 / 575 1230 / 1230 1536 / 1536 1063 / 1063 Output Total 1200 / 1200 3900 / 3900 3800 / 3800 500 / 500 Balance -625 / -625 -2670 / -2670 -2264 / -2264 563 / 563 - Physical Exam Oriented: Normal Eyes: Normal Ear: Normal Nose: Normal Throat: Normal Respiratory: Generalized, Diminished Cardiovascular: Edema (BLE 2+ PITTING EDEMA, LEFT ARM 1+ PITTING EDEMA ) : Normal Auscultation: Bowel Sounds: Normal Palpation: Normal Tenderness: Normal Skin: Normal Musculoskeletal: Normal Psychiatric: Normal Mood Description: Calm Affect: Normal Speech Pattern: Clear, Appropriate - Laboratory and Diagnostics Result Diagrams: 10/13/22 05:29 10/13/22 05:29 Labs: 10/13/22 16:15 Sputum - Expectorated Sputum - Final Laboratory WBC 5.8 X10^3/uL (3.6-10.0) 10/13/22 05:29 RBC 3.32 X10^6/uL (4.7-6.0) L 10/13/22 05:29 Hgb 9.5 g/dL (13.5-18.0) L 10/13/22 05:29 Hct 28.9 % (42.0-54.0) L 10/13/22 05:29 MCV 87.0 fL (80.0-100.0) 10/13/22 05:29 MCH 28.7 pg (27.0-34.0) 10/13/22 05:29 MCHC 33.0 g/dL (33.0-35.0) 10/13/22 05:29 RDW 14.0 % (11.6-16.5) 10/13/22 05:29 Plt Count 177 X10^3/uL (150.0-450.0) 10/13/22 05:29 MPV 8.2 fL (7.4-11.0) 10/13/22 05:29 Neut % (Auto) 51.7 % (42.0-75.0) 10/13/22 05:29 Lymph % (Auto) 33.3 % (21.0-51.0) 10/13/22 05:29 [place] % (Auto) 10.7 % (0.0-13.0) 10/13/22 05:29 Eos % (Auto) 3.9 % (0.9-2.9) H 10/13/22 05:29 Baso % (Auto) 0.4 % (0.2-1.0) 10/13/22 05:29 Neut # (Auto) 3.0 x10^3/uL (2.2-4.8) 10/13/22 05:29 Lymph # (Auto) 1.9 X10^3/uL (1.3-2.9) 10/13/22 05:29 [place] # (Auto) 0.6 x10^3/uL (0.3-0.8) 10/13/22 05:29 Eos # (Auto) 0.2 x10^3/uL (0.0-0.2) 10/13/22 05:29 Baso # (Auto) 0.0 X10^3/uL (0.0-0.1) 10/13/22 05:29 Absolute Nucleated RBC 0.1 /100WBC 10/13/22 05:29 D-Dimer 1.48 ug/ml (0.0-0.57) H 10/10/22 12:50 Sodium 146 mmol/L (136-145) H 10/13/22 05:29 Corrected Sodium TNP 10/13/22 05:29 Potassium 3.7 mmol/L (3.5-5.1) 10/13/22 05:29 Chloride 104 mmol/L (98-107) 10/13/22 05:29 Carbon Dioxide 35.5 mmol/L (21-32) H 10/13/22 05:29 BUN 20 mg/dL (7-18) H 10/13/22 05:29 Creatinine 1.09 mg/dL (0.70-1.30) 10/13/22 05:29 Est GFR (MDRD) Af Amer > 60 (>60) 10/13/22 05:29 Est GFR (MDRD) Non-Af > 60 (>60) 10/13/22 05:29 Glucose 79 mg/dL (65-99) 10/13/22 05:29 POC Glucose (mg/dL) 146 mg/dL (65-99) H 10/13/22 20:11 Hemoglobin A1c 6.1 % 10/10/22 12:28 Calcium 8.2 mg/dL (8.5-10.1) L 10/13/22 05:29 Corrected Calcium 8.8 mg/dL (8.5-10.1) 10/13/22 05:29 Total Bilirubin 0.40 mg/dL (0.2-1.0) 10/13/22 05:29 AST 12 Units/L (15-37) L 10/13/22 05:29 ALT 14 Units/L (12-78) 10/13/22 05:29 Alkaline Phosphatase 63 Units/L (46-116) 10/13/22 05:29 Creatine Kinase 73 Units/L (39-308) 10/10/22 12:28 Troponin I High Sens 14.5 ng/L (4.0-60.0) 10/10/22 12:28 Troponin I High Sens 15.1 ng/L (4.0-60.0) 10/10/22 12:28 B-Natriuretic Peptide 284 pg/mL (0-79) H 10/13/22 05:29 Total Protein 6.4 g/dL (6.4-8.2) 10/13/22 05:29 Albumin 3.2 g/dL (3.4-5.0) L 10/13/22 05:29 Globulin 3.2 g/dL (2.5-4.5) 10/13/22 05:29 Albumin/Globulin Ratio 1.0 Ratio (1.1-2.1) L 10/13/22 05:29 TSH 3rd Generation 4.859 uIU/mL (0.358-3.74) H 10/10/22 12:28 Resp Viral Panel (PCR) See scanned report 10/10/22 20:50 - Plan (1) Community acquired pneumonia Status: Acute Qualifiers: Laterality: right Lung location: middle lobe of lung Qualified Code(s): J18.9 - Pneumonia, unspecified organism Plan: SUPPLEMENTAL OXYGEN, LEVAQUIN 250MG IV DAILY, ALBUMIN 25% IV DAILY, DUONEBS Q4H, PULMICORT NEBS BID, THE POTASSIUM PROTOCOLS, LASIX 40MG IV BID, AND HIS HOME MEDICATIONS WERE RESUMED. (2) Anemia Status: Acute Qualifiers: Anemia type: iron deficiency Iron deficiency anemia type: chronic blood loss Qualified Code(s): D50.0 - Iron deficiency anemia secondary to blood loss (chronic) (3) CHF, acute Status: Acute Qualifiers: Heart failure type: unspecified Qualified Code(s): I50.9 - Heart failure, unspecified (4) Hypoalbuminemia Status: Acute (5) Abnormal TSH Status: Acute
--- NOTE | 2022-10-13 20:56 | PCM.PROG ---
Progress Note - Progress Note for Day of Date of Exam: 10/13/22 - Subjective Subjective: IS CURRENTLY INPATIENT STATUS FOR [facility] AQUIRED PNEUMONIA, ANEMIA, CHF EXACERBATION, AND HYPOALBUMINEMIA. TODAY, HE IS ALERT AND ORIENTED, LYING IN BED ON MORNING ROUNDS. HE COMPLAINS OF PERSISTENT SHORTNESS OF BREATH AND WEAKNESS, BUT CONTINUES TO REPORT IMPROVEMENT SINCE ADMISSION. HE HAS HAD A MILD, NON-PRODUCTIVE COUGH. HE REPORTS THAT SHORTNESS OF BREATH IS WORSE ON EXERTION. RESPIRATORY THERAPY REPORTS THAT OXYGEN SATURATIONS DROPPED TO 87% ON ROOM AIR WHILE AMBULATING. ON EXAMINATION, HEART IS REGULAR IN RATE AND RHYTHM. BILATERAL LUNGS ARE NOTED WITH DIMINISHED LUNG SOUNDS THROUGHOUT. ABDOMEN IS ROUND, SOFT, AND NON-TENDER WITH NORMAL BOWEL SOUNDS NOTE D IN ALL QUADRANTS. BILATERAL LOWER EXTREMITIES ARE NOTED WITH 1+ PITTING EDEMA THIS MORNING. THIS IS IMPROVEMENT SINCE YESTERDAY. HIS VITALS THIS MORNING ARE: 98.4-62-20-93%-127/60. HE IS CURRENTLY UTILIZING OXYGEN VIA NASAL CANNULA AT 2 LPM. LABS WERE OBTAINED. WBC 5.8, RBC 3.32, HGB 9.5, HCT 28.9, SODIUM 146, POTASSIUM 3.7, BUN 20, CREATININE 1.09, GLUCOSE 79, CALCIUM 8.2, AST 12, ALT 14, ALK PHOS 63, BNP 284, TOTAL PROTEIN 6.4, ALBUMIN 3.2. AIT RESPIRATORY PANEL REVEALED STREPTOCOCCUS PNEUMONIAE. A CHEST XRAY WAS OBTAINED AND REVEALED: The heart is upper limits normal in size. No definite congestive heart failure is noted. The candice are normal. Hazy right basilar lung infiltrate is unchanged. There is persistent increased density retrocardiac area of the left lower lobe which could be on the basis of atelectasis, consolidation, pleural effusion, or combination. Left upper lung field is clear. Bony thorax is unremarkable. HE IS CURRENTLY RECEIVING LEVAQUIN 250MG IV DAILY, ALBUMIN 25% IV DAILY, DUONEBS Q4H, PULMICORT NEBS BID, THE POTASSIUM PROTOCOLS, LASIX 40MG IV BID, AND HIS HOME MEDICATIONS WERE RESUMED. WE WILL CONTINUE WITH CURRENT PLAN OF CARE TODAY. WE WILL RECHECK TSH LEVEL IN THE MORNING. OTHERWISE, WE WILL FOLLOW-UP WITH AM LABS AND CONTINUE TO MONITOR. TIME SPENT ON CLINICAL ASSESSMENT, REVIEWING LABS AND IMAGING, DECISION MAKING, AND DOCUMENTATION GREATER THAN 45 MINUTES. - Past Medical Family Social History Past Med/Fam/Surg Hx: No changes since H&P Allergies: Allergies No Known Drug Allergies Allergy (Verified 04/07/19 09:42) - Review of Systems ROS: No change since H&P - Vital Signs and I&O's Vital Signs: Temperature 97.3 F Pulse Rate [Left] 54 Pulse Rate 89 Respiratory Rate 18 Blood Pressure [Left Arm] 138/62 Blood Pressure 131/79 O2 Sat by Pulse Oximetry 95 Intake and Output: Intake & Output 10/11/22 10/12/22 10/13/22 10/14/22 11:59 11:59 11:59 11:59 Intake Total 575 / 575 1230 / 1230 1536 / 1536 1063 / 1063 Output Total 1200 / 1200 3900 / 3900 3800 / 3800 500 / 500 Balance -625 / -625 -2670 / -2670 -2264 / -2264 563 / 563 - Physical Exam Oriented: Normal Eyes: Normal Ear: Normal Nose: Normal Throat: Normal Respiratory: Generalized, Diminished Cardiovascular: Edema (BLE 1+ PITTING EDEMA, LEFT ARM 1+ PITTING EDEMA ) : Normal Auscultation: Bowel Sounds: Normal Palpation: Normal Tenderness: Normal Skin: Normal Musculoskeletal: Normal Psychiatric: Normal Mood Description: Calm Affect: Normal Speech Pattern: Clear, Appropriate - Laboratory and Diagnostics Result Diagrams: 10/13/22 05:29 10/13/22 05:29 Labs: 10/13/22 16:15 Sputum - Expectorated Sputum - Final Laboratory WBC 5.8 X10^3/uL (3.6-10.0) 10/13/22 05:29 RBC 3.32 X10^6/uL (4.7-6.0) L 10/13/22 05:29 Hgb 9.5 g/dL (13.5-18.0) L 10/13/22 05:29 Hct 28.9 % (42.0-54.0) L 10/13/22 05:29 MCV 87.0 fL (80.0-100.0) 10/13/22 05:29 MCH 28.7 pg (27.0-34.0) 10/13/22 05:29 MCHC 33.0 g/dL (33.0-35.0) 10/13/22 05:29 RDW 14.0 % (11.6-16.5) 10/13/22 05:29 Plt Count 177 X10^3/uL (150.0-450.0) 10/13/22 05:29 MPV 8.2 fL (7.4-11.0) 10/13/22 05:29 Neut % (Auto) 51.7 % (42.0-75.0) 10/13/22 05:29 Lymph % (Auto) 33.3 % (21.0-51.0) 10/13/22 05:29 [place] % (Auto) 10.7 % (0.0-13.0) 10/13/22 05:29 Eos % (Auto) 3.9 % (0.9-2.9) H 10/13/22 05:29 Baso % (Auto) 0.4 % (0.2-1.0) 10/13/22 05:29 Neut # (Auto) 3.0 x10^3/uL (2.2-4.8) 10/13/22 05:29 Lymph # (Auto) 1.9 X10^3/uL (1.3-2.9) 10/13/22 05:29 [place] # (Auto) 0.6 x10^3/uL (0.3-0.8) 10/13/22 05:29 Eos # (Auto) 0.2 x10^3/uL (0.0-0.2) 10/13/22 05:29 Baso # (Auto) 0.0 X10^3/uL (0.0-0.1) 10/13/22 05:29 Absolute Nucleated RBC 0.1 /100WBC 10/13/22 05:29 D-Dimer 1.48 ug/ml (0.0-0.57) H 10/10/22 12:50 Sodium 146 mmol/L (136-145) H 10/13/22 05:29 Corrected Sodium TNP 10/13/22 05:29 Potassium 3.7 mmol/L (3.5-5.1) 10/13/22 05:29 Chloride 104 mmol/L (98-107) 10/13/22 05:29 Carbon Dioxide 35.5 mmol/L (21-32) H 10/13/22 05:29 BUN 20 mg/dL (7-18) H 10/13/22 05:29 Creatinine 1.09 mg/dL (0.70-1.30) 10/13/22 05:29 Est GFR (MDRD) Af Amer > 60 (>60) 10/13/22 05:29 Est GFR (MDRD) Non-Af > 60 (>60) 10/13/22 05:29 Glucose 79 mg/dL (65-99) 10/13/22 05:29 POC Glucose (mg/dL) 146 mg/dL (65-99) H 10/13/22 20:11 Hemoglobin A1c 6.1 % 10/10/22 12:28 Calcium 8.2 mg/dL (8.5-10.1) L 10/13/22 05:29 Corrected Calcium 8.8 mg/dL (8.5-10.1) 10/13/22 05:29 Total Bilirubin 0.40 mg/dL (0.2-1.0) 10/13/22 05:29 AST 12 Units/L (15-37) L 10/13/22 05:29 ALT 14 Units/L (12-78) 10/13/22 05:29 Alkaline Phosphatase 63 Units/L (46-116) 10/13/22 05:29 Creatine Kinase 73 Units/L (39-308) 10/10/22 12:28 Troponin I High Sens 14.5 ng/L (4.0-60.0) 10/10/22 12:28 Troponin I High Sens 15.1 ng/L (4.0-60.0) 10/10/22 12:28 B-Natriuretic Peptide 284 pg/mL (0-79) H 10/13/22 05:29 Total Protein 6.4 g/dL (6.4-8.2) 10/13/22 05:29 Albumin 3.2 g/dL (3.4-5.0) L 10/13/22 05:29 Globulin 3.2 g/dL (2.5-4.5) 10/13/22 05:29 Albumin/Globulin Ratio 1.0 Ratio (1.1-2.1) L 10/13/22 05:29 TSH 3rd Generation 4.859 uIU/mL (0.358-3.74) H 10/10/22 12:28 Resp Viral Panel (PCR) See scanned report 10/10/22 20:50 - Plan (1) Community acquired pneumonia Status: Acute Qualifiers: Laterality: right Lung location: middle lobe of lung Qualified Code(s): J18.9 - Pneumonia, unspecified organism Plan: SUPPLEMENTAL OXYGEN, LEVAQUIN 250MG IV DAILY, ALBUMIN 25% IV DAILY, DUONEBS Q4H, PULMICORT NEBS BID, THE POTASSIUM PROTOCOLS, LASIX 40MG IV BID, AND HIS HOME MEDICATIONS WERE RESUMED. (2) Anemia Status: Acute Qualifiers: Anemia type: iron deficiency Iron deficiency anemia type: chronic blood loss Qualified Code(s): D50.0 - Iron deficiency anemia secondary to blood loss (chronic) (3) CHF, acute Status: Acute Qualifiers: Heart failure type: unspecified Qualified Code(s): I50.9 - Heart failure, unspecified (4) Hypoalbuminemia Status: Acute (5) Abnormal TSH Status: Acute
[2022-10-14] MEDS: DUONEB 0.5 MG/3 MG (3 mL) NEB SCH ×3 (01:00→08:09)
[2022-10-14 07:16] LABS: BASOPHILS % (AUTO) 0.4 % (0.2-1.0); EOSINOPHILS # (AUTO) 0.2 x10^3/uL (0.0-0.2); EOSINOPHILS % (AUTO) 4.1 % (0.9-2.9); HEMATOCRIT 29.3 % (42.0-54.0); HEMOGLOBIN 9.6 g/dL (13.5-18.0); LYMPHOCYTES # (AUTO) 1.6 X10^3/uL (1.3-2.9); LYMPHOCYTES % (AUTO) 28.6 % (21.0-51.0); MEAN CORPUSCULAR HEMOGLOBIN 28.7 pg (27.0-34.0); MEAN CORPUSCULAR HGB CONC 32.7 g/dL (33.0-35.0); MEAN CORPUSCULAR VOLUME 87.8 fL (80.0-100.0); MEAN PLATELET VOLUME 8.1 fL (7.4-11.0); MONOCYTES # (AUTO) 0.5 x10^3/uL (0.3-0.8); MONOCYTES % (AUTO) 8.8 % (0.0-13.0); NEUTROPHILS # (AUTO) 3.3 x10^3/uL (2.2-4.8); NEUTROPHILS % (AUTO) 58.1 % (42.0-75.0); RED BLOOD COUNT 3.33 X10^6/uL (4.7-6.0); RED CELL DISTRIBUTION WIDTH 13.8 % (11.6-16.5); WHITE BLOOD COUNT 5.6 X10^3/uL (3.6-10.0)
[2022-10-14 07:37] LABS: ALANINE AMINOTRANSFERASE 15 Units/L (12-78); ALBUMIN 3.4 g/dL (3.4-5.0); ALKALINE PHOSPHATASE 63 Units/L (46-116); ASPARTATE AMINO TRANSFERASE 15 Units/L (15-37); BLOOD UREA NITROGEN 18 mg/dL (7-18); CALCIUM 8.3 mg/dL (8.5-10.1); CARBON DIOXIDE 35.9 mmol/L (21-32); CHLORIDE 103 mmol/L (98-107); CREATININE 0.96 mg/dL (0.70-1.30); SODIUM 145 mmol/L (136-145); TOTAL PROTEIN 6.5 g/dL (6.4-8.2); TSH (3RD GENERATION) 4.045 uIU/mL (0.358-3.74); eGFR NON BLACK RACES > 60 (>60)
[2022-10-14] MEDS ORDERED: GLUCOPHAGE ONE (07:37)
[2022-10-14 07:54] VITALS: BP 150/64
[2022-10-14] MEDS: PULMICORT NEB TX 0.5 MG NEB SCH (08:09)
[2022-10-14] MEDS: ALBUMIN HUMAN 25%- 100 ML 100 ML IV SCH (08:16)
[2022-10-14] MEDS: LASIX IVP SCH (08:18)
[2022-10-14] MEDS: GLUCOPHAGE PO SCH (08:20)
[2022-10-14] MEDS: GLUCOTROL PO SCH (08:21)
[2022-10-14] MEDS: VITAMIN C PO SCH (08:21)
[2022-10-14] MEDS: LEVAQUIN PREMIX IV 250 MG 250 MG/50 ML BAG IV SCH (08:21)
[2022-10-14] MEDS: COREG TAB 25 MG PO SCH (08:21)
[2022-10-14] MEDS: COZAAR PO SCH (08:21)
[2022-10-14] MEDS: NORVASC TAB 10 MG PO SCH (08:22)
[2022-10-14] MEDS: CLARITIN PO SCH (08:22)
--- NOTE | 2022-10-14 09:24 | RAD ---
HISTORYPneumonia, shortness of breathSTUDYChest AP [id number] is upper limits normal in size. No definite congestive heart failure is noted. The are normal. Hazy right basilar lung infiltrate is unchanged. Persistent increased density retrocardiac area left lower lobe obscuring the left hemidiaphragm which could be on the basis of atelectasis, consolidation, pleural effusion or combination. Left upper lung field is clear. Bony thorax is unremarkable.IMPRESSIONNo change hazy right basilar infiltrateNo change increased density retrocardiac area left lower lobe obscuring left hemidiaphragm. Differential diagnosis as aboveElectronically signed by: PADDY STOKES (Oct 14, 2022 09:22:47)
== END 2022-10-14 12:00 | disposition home or self-care (01) | DRG 194 ==
LOC: ER 10:37 → MED/SURG 16:38
PROVIDERS: ADMIT Internal Medicine; ATTEND Internal Medicine
DX: R53.1 Weakness; E11.65 Type 2 diabetes mellitus with hyperglycemia; R60.0 Localized edema; J90 Pleural effusion, not elsewhere classified; R94.6 Abnormal results of thyroid function studies; E88.09 Other disorders of plasma-protein metabolism, not elsewhere classified; J13 Pneumonia due to Streptococcus pneumoniae; I10 Essential (primary) hypertension; R06.02 Shortness of breath; I25.10 Atherosclerotic heart disease of native coronary artery without angina pectoris; I50.9 Heart failure, unspecified; E78.2 Mixed hyperlipidemia; D50.0 Iron deficiency anemia secondary to blood loss (chronic); R79.1 Abnormal coagulation profile

== ENCOUNTER 2025-01-22 15:01 | Inpatient (IN) ==
[2025-01-22 15:39] LABS: BASOPHILS # (AUTO) 0.1 X10^3/uL (0.0-0.1); BASOPHILS % (AUTO) 0.5 % (0.2-1.0); EOSINOPHILS % (AUTO) 0.1 % (0.9-2.9); HEMOGLOBIN 7.6 g/dL (13.5-18.0); LYMPHOCYTES # (AUTO) 0.9 X10^3/uL (1.3-2.9); LYMPHOCYTES % (AUTO) 6.7 % (21.0-51.0); MEAN CORPUSCULAR HGB CONC 31.7 g/dL (33.0-35.0); MEAN CORPUSCULAR VOLUME 72.7 fL (80.0-100.0); MEAN PLATELET VOLUME 7.2 fL (7.4-11.0); MONOCYTES # (AUTO) 1.1 x10^3/uL (0.3-0.8); MONOCYTES % (AUTO) 8.5 % (0.0-13.0); NEUTROPHILS % (AUTO) 84.2 % (42.0-75.0); PLATELET COUNT 492 X10^3/uL (150.0-450.0); RED BLOOD COUNT 3.31 X10^6/uL (4.7-6.0); RED CELL DISTRIBUTION WIDTH 17.6 % (11.6-16.5)
--- NOTE | 2025-01-22 15:48 | DR.SOBA ---
HPI Time Seen Time Seen by Provider: 01/22/25 15:47 Primary Care Physician Primary Care Physician: freddie ceron HPI Comment HPI Comment: History as below. Complaints Chief Complaint:: Patient states for the past week he has had sob and non productive cough he seen freddie ceron wednesday was given a rocephin shot and started on steriods, antibiotics and albuterol tx. Patient was seen wednesday here in the er swabbed for covid,flu,rsv which was negative. Patient then had a outpatient chest xray today that shows hemithorax on the right side. Self Treatment fo Chief Complaint: zpack, albuterol tx, levaquin COVID-19 Coronavirus risk:travel/contact w/high risk person: No Has patient experienced Coronavirus symptoms: No Reviewed Nurses Notes Reviewed: Yes Source History Provided: Patient Mode of Arrival Mode of Arrival: Wheelchair Timing Onset of Chief Complaint: 01/16/25 PMH PMH Past Medical History: Yes Past Medical History: CVA, Diabetes, Dyslipidemia, Hypertension and ID Past Surgical History: Yes Surgical History: Angioplasty/Stents Family History History of Family Medical Conditions: Yes Family Medical History: Diabetes Mellitus and ID Social History Does patient currently use any type of tobacco product: No Have you used tobacco products in the last 12 months: No Type of Tobacco Use: None Does any household member use tobacco: No Alcohol Use: None Do you use any recreational Drugs:: No Lives With: Family Lives Where: Home Travel Risk Coronavirus risk:travel/contact w/high risk person: No Has patient experienced Coronavirus symptoms: No Infectious screening In the last 2 months have you had wt loss of >10#?: NO Have you had fever, night sweats or hemotysis?: No Have you traveled outside the country in the last 6 months?: No Isolation: Standard PE Vital Signs Vitals: Vital Signs Temperature 97.4 F Pulse Rate 60 Pulse Rate 60 Pulse Rate 65 Pulse Rate 63 Pulse Rate 62 Pulse Rate 63 Pulse Rate 62 Pulse Rate 61 Pulse Rate 64 Pulse Rate 62 Pulse Rate 61 Pulse Rate 68 Pulse Rate 58 Pulse Rate 57 Pulse Rate 59 Pulse Rate 61 Pulse Rate 62 Pulse Rate 59 Pulse Rate 60 Pulse Rate 59 Pulse Rate 62 Pulse Rate 60 Pulse Rate 64 Pulse Rate 64 Respiratory Rate 16 Blood Pressure 158/69 Blood Pressure 150/65 Blood Pressure 138/63 Blood Pressure 163/67 Blood Pressure 130/60 Blood Pressure 139/63 Blood Pressure 140/63 Blood Pressure 121/58 Blood Pressure 145/63 Blood Pressure 145/63 Blood Pressure 145/63 O2 Sat by Pulse Oximetry 99 O2 Sat by Pulse Oximetry 98 O2 Sat by Pulse Oximetry 91 O2 Sat by Pulse Oximetry 99 O2 Sat by Pulse Oximetry 100 O2 Sat by Pulse Oximetry 97 O2 Sat by Pulse Oximetry 97 O2 Sat by Pulse Oximetry 97 O2 Sat by Pulse Oximetry 96 O2 Sat by Pulse Oximetry 97 O2 Sat by Pulse Oximetry 97 O2 Sat by Pulse Oximetry 97 O2 Sat by Pulse Oximetry 97 O2 Sat by Pulse Oximetry 99 O2 Sat by Pulse Oximetry 97 O2 Sat by Pulse Oximetry 95 O2 Sat by Pulse Oximetry 98 O2 Sat by Pulse Oximetry 97 O2 Sat by Pulse Oximetry 98 O2 Sat by Pulse Oximetry 97 O2 Sat by Pulse Oximetry 93 O2 Sat by Pulse Oximetry 94 O2 Sat by Pulse Oximetry 91 O2 Sat by Pulse Oximetry 91 ROR Labs Reviewed 01/22/25 15:22 01/22/25 15:22 Laboratory: WBC 13.0 X10^3/uL (3.6-10.0) H 01/22/25 15:22 RBC 3.31 X10^6/uL (4.7-6.0) L 01/22/25 15:22 Hgb 7.6 g/dL (13.5-18.0) L 01/22/25 15:22 Hct 24.0 % (42.0-54.0) L 01/22/25 15:22 MCV 72.7 fL (80.0-100.0) L 01/22/25 15:22 MCH 23.0 pg (27.0-34.0) L 01/22/25 15:22 MCHC 31.7 g/dL (33.0-35.0) L 01/22/25 15:22 RDW 17.6 % (11.6-16.5) H 01/22/25 15:22 Plt Count 492 X10^3/uL (150.0-450.0) H 01/22/25 15:22 Plt Count Comment Increased (ADEQUATE) 01/22/25 15:22 MPV 7.2 fL (7.4-11.0) L 01/22/25 15:22 Neut % (Auto) 84.2 % (42.0-75.0) H 01/22/25 15:22 Lymph % (Auto) 6.7 % (21.0-51.0) L 01/22/25 15:22 [place] % (Auto) 8.5 % (0.0-13.0) 01/22/25 15:22 Eos % (Auto) 0.1 % (0.9-2.9) L 01/22/25 15:22 Baso % (Auto) 0.5 % (0.2-1.0) 01/22/25 15:22 Neut # (Auto) 11.0 x10^3/uL (2.2-4.8) H 01/22/25 15:22 Lymph # (Auto) 0.9 X10^3/uL (1.3-2.9) L 01/22/25 15:22 [place] # (Auto) 1.1 x10^3/uL (0.3-0.8) H 01/22/25 15:22 Eos # (Auto) 0.0 x10^3/uL (0.0-0.2) 01/22/25 15:22 Baso # (Auto) 0.1 X10^3/uL (0.0-0.1) 01/22/25 15:22 Absolute Nucleated RBC 0.0 /100WBC 01/22/25 15:22 Plt Morphology Comment Normal (NORMAL) 01/22/25 15:22 RBC Morphology Abnormal (NORMAL) 01/22/25 15:22 Hypochromasia 1+ A 01/22/25 15:22 Anisocytosis Slight A 01/22/25 15:22 Microcytosis Slight A 01/22/25 15:22 Ovalocytes Present 01/22/25 15:22 PT 15.8 SECONDS (11.8-14.3) 01/22/25 15:22 INR Target Range - 01/22/25 15:22 INR 1.29 (0.8-1.3) 01/22/25 15:22 APTT 34.4 SECONDS (22.9-36.5) 01/22/25 15:22 PTT Comment - 01/22/25 15:22 D-Dimer 1.74 ug/ml (0.0-0.57) H 01/22/25 15:22 Sodium 137 mmol/L (136-145) 01/22/25 15:22 Corrected Sodium TNP 01/22/25 15:22 Potassium 5.4 mmol/L (3.5-5.1) H 01/22/25 15:22 Chloride 101 mmol/L (98-107) 01/22/25 15:22 Carbon Dioxide 29.2 mmol/L (21-32) 01/22/25 15:22 BUN 30 mg/dL (7-18) H 01/22/25 15:22 Creatinine 1.35 mg/dL (0.70-1.30) H 01/22/25 15:22 Est GFR (MDRD) Af Amer > 60 (>60) 01/22/25 15:22 Est GFR (MDRD) Non-Af 54 (>60) L 01/22/25 15:22 Glucose 53 mg/dL (65-99) L 01/22/25 15:22 Lactic Acid 1.4 mmol/L (0.4-2.0) 01/22/25 15:22 Calcium 8.5 mg/dL (8.5-10.1) 01/22/25 15:22 Corrected Calcium 10.0 mg/dL (8.5-10.1) 01/22/25 15:22 Total Bilirubin 0.40 mg/dL (0.2-1.0) 01/22/25 15:22 AST 12 Units/L (15-37) L 01/22/25 15:22 ALT 13 Units/L (12-78) 01/22/25 15:22 Alkaline Phosphatase 82 Units/L (46-116) 01/22/25 15:22 Creatine Kinase 24 Units/L (39-308) L 01/22/25 15:22 Troponin I High Sens < 4.0 ng/L (4.0-60.0) L 01/22/25 15:22 B-Natriuretic Peptide 167 pg/mL (0-79) H 01/22/25 15:22 Total Protein 6.8 g/dL (6.4-8.2) 01/22/25 15:22 Albumin 2.1 g/dL (3.4-5.0) L 01/22/25 15:22 Globulin 4.7 g/dL (2.5-4.5) H 01/22/25 15:22 Albumin/Globulin Ratio 0.4 Ratio (1.1-2.1) L 01/22/25 15:22 Opioid Opioid Risk Tool Age (Kilo box if 16-45): No History of Preadolescent Sexual Abuse: No Total: 0 Total Score Risk Category: Low Risk Copyright: Scotty OLIVER predicting aberrant behaviors Discharge Plan Discharge Plan Patient Disposition: HOME, SELF-CARE Condition: Stable Prescriptions: No Action metformin 500 mg tablet 1 tab PO BID atorvastatin 80 mg Tablet 40 mg PO HS Rx Instructions: PT TAKES IN THE AFTERNOON carvedilol 25 mg tablet 0.5 tab PO BID doxazosin 8 mg tablet 1 tab PO HS losartan 100 mg Tablet 100 mg PO DAILY glipizide 5 mg Tablet 5 mg PO BID docusate sodium [Colace] 100 mg Capsule 200 mg PO BID levofloxacin 500 mg tablet 500 mg PO QDAY methylprednisolone 4 mg tablets,dose pack See Rx Instructions .ROUTE .COMPLEX Rx Instructions: take as instructed Health Concerns: Post Hospitalization: new medications and changes needed to prevent readmission or further decline. Pt educated and given instructions on all concerns. Plan of Treatment: Continue with present treatment and follow up plan. Pt is to keep follow up appointment as instructed and take medications as ordered. Orders to Discharge Patient Discharge Orders: Transfer (Routine); Ordered 01/22/25 Ordered By: JE ALBERTO Follow ups/Referrals Follow ups/Referrals: ROBERTO CERON [Primary Care Provider] - 3 days Instructions Stand Alone Forms: Find Help Web Site, Post Hospital Follow Up Care
--- NOTE | 2025-01-22 15:55 | EKG ---
Test Reason : sob Blood Pressure : */* mmHG Vent. Rate : 59 BPM Atrial Rate : 59 BPM P-R Int : 144 ms QRS Dur : 84 ms QT Int : 386 ms P-R-T Axes : 3 41 20 degrees QTc Int : 382 ms Sinus bradycardia Low voltage QRS Septal infarct (cited on or before 11-MAY-2023) Abnormal ECG When compared with ECG of 11-MAY-2023 10:58, No significant change was found Confirmed by Cristi Yao MD ([id number]) on 01/23/2025 7:38:19 AM Referred By: Confirmed By: Cristi Yao MD
[2025-01-22 15:58] LABS: ALANINE AMINOTRANSFERASE 13 Units/L (12-78); ALBUMIN 2.1 g/dL (3.4-5.0); ALKALINE PHOSPHATASE 82 Units/L (46-116); ASPARTATE AMINO TRANSFERASE 12 Units/L (15-37); BLOOD UREA NITROGEN 30 mg/dL (7-18); CALCIUM 8.5 mg/dL (8.5-10.1); CARBON DIOXIDE 29.2 mmol/L (21-32); CHLORIDE 101 mmol/L (98-107); CREATININE 1.35 mg/dL (0.70-1.30); GLUCOSE 53 mg/dL (65-99); INR 1.29 (0.8-1.3); POTASSIUM 5.4 mmol/L (3.5-5.1); SODIUM 137 mmol/L (136-145); TOTAL PROTEIN 6.8 g/dL (6.4-8.2); eGFR NON BLACK RACES 54 (>60)
[2025-01-22 16:00] LABS: CREATINE KINASE 24 Units/L (39-308)
[2025-01-22] MEDS: D50W ABBOJECT SYR IV ONE ×2 (16:28→16:29)
[2025-01-22 16:44] LABS: ANISOCYTOSIS SLIGHT; HYPOCHROMASIA 1+; MICROCYTOSIS SLIGHT; PLATELET MORPHOLOGY COMMENT NORMAL (NORMAL)
[2025-01-22 16:45] LABS: OVALOCYTES PRESENT
--- NOTE | 2025-01-22 17:59 | CT ---
EXAM:CT PULMONARY ANGIOGRAM CHEST WITH CONTRAST (PE PROTOCOL)HISTORY:RIGHT HEMITHORAX, SOB, ELEVATED DDIMER;COMPARISON:None.TECHNIQUE:Axial CT images were obtained through the chest after the intravenous administration of contrast. Coronal reformatted images were included. Maximum intensity projection (MIP) images were performed per pulmonary angiogram protocol.Informed written consent was obtained prior to contrast administration.All CT scans at this facility use dose modulation, iterative reconstruction, and/or weight based dosing when appropriate to reduce radiation dose to as low as reasonably achievable.FINDINGS:HEART AND PULMONARY ARTERIES: No pulmonary embolism. Heart size appears normal. Coronary artery atherosclerosis.SUPPORT DEVICES: NoneLYMPH NODES: No pathologically enlarged nodes.LUNGS AND PLEURA: Dense consolidation of the right lower lobe is noted without air bronchograms. Finding may represent pneumonia given central low-attenuation but mass is not entirely excluded. Follow-up after resolution of acute symptoms recommended. Right lower lobe airspace opacity suggests pneumonia anteriorly. Large right pleural effusion. Left lung appears clear aside from hypoventilatory changes and mild pulmonary emphysema.AIRWAYS: NormalUPPER ABDOMEN: NormalBONES: NormalIMPRESSION:Right lower lobe airspace opacities noted with dense masslike component. Findings likely represent pneumonia but radiographic follow-up to resolution is recommended.Large right pleural effusion.No pulmonary embolism.THIS IS AN ELECTRONICALLY VERIFIED FINAL REPORT01/22/2025 5:56 PM - Electronically signed by Tan Ayon MD
[2025-01-22] MEDS: ROCEPHIN VIAL 1 GRAM IV ONE (18:07)
[2025-01-22] MEDS ORDERED: NS 250 ML IV 25 ML IV PRN (19:17)
[2025-01-22] MEDS: ZOSYN VIAL 3.375 GRAMS 3.375 G in NS 100 ML IV 100 ML IV SCH (19:34)
[2025-01-22] MEDS: PULMICORT NEB TX 0.5 MG NEB SCH (21:36)
[2025-01-22] MEDS: XOPENEX 1.25 MG/3 ML NEBULE NEB SCH (21:36)
[2025-01-22 22:26] VITALS: BMI 23.0
[2025-01-22] MEDS: RESTORIL CAP 15 MG PO PRN (22:48)
[2025-01-22] MEDS: ROBITUSSIN DM PO PRN (22:48)
[2025-01-23] MEDS: NS 1/2 1,000 ML IV 1,000 ML IV SCH (00:29)
[2025-01-23] MEDS: XOPENEX 1.25 MG/3 ML NEBULE NEB SCH (05:41)
[2025-01-23 06:26] LABS: BASOPHILS % (AUTO) 0.2 % (0.2-1.0); EOSINOPHILS # (AUTO) 0.1 x10^3/uL (0.0-0.2); EOSINOPHILS % (AUTO) 1.1 % (0.9-2.9); HEMATOCRIT 24.1 % (42.0-54.0); HEMOGLOBIN 7.4 g/dL (13.5-18.0); LYMPHOCYTES # (AUTO) 1.1 X10^3/uL (1.3-2.9); LYMPHOCYTES % (AUTO) 9.7 % (21.0-51.0); MEAN CORPUSCULAR HEMOGLOBIN 22.5 pg (27.0-34.0); MEAN CORPUSCULAR HGB CONC 30.9 g/dL (33.0-35.0); MEAN CORPUSCULAR VOLUME 72.6 fL (80.0-100.0); MONOCYTES # (AUTO) 1.1 x10^3/uL (0.3-0.8); MONOCYTES % (AUTO) 9.7 % (0.0-13.0); NEUTROPHILS # (AUTO) 9.2 x10^3/uL (2.2-4.8); NEUTROPHILS % (AUTO) 79.3 % (42.0-75.0); PLATELET COUNT 440 X10^3/uL (150.0-450.0); RED BLOOD COUNT 3.31 X10^6/uL (4.7-6.0); RED CELL DISTRIBUTION WIDTH 17.8 % (11.6-16.5); WHITE BLOOD COUNT 11.6 X10^3/uL (3.6-10.0)
[2025-01-23 06:36] LABS: ALANINE AMINOTRANSFERASE 10 Units/L (12-78); ALKALINE PHOSPHATASE 74 Units/L (46-116); ASPARTATE AMINO TRANSFERASE 10 Units/L (15-37); BLOOD UREA NITROGEN 23 mg/dL (7-18); CALCIUM 8.4 mg/dL (8.5-10.1); CARBON DIOXIDE 32.2 mmol/L (21-32); CHLORIDE 102 mmol/L (98-107); CREATININE 1.01 mg/dL (0.70-1.30); GLUCOSE 81 mg/dL (65-99); MAGNESIUM 2.3 mg/dL (2.0-2.9); POTASSIUM 4.8 mmol/L (3.5-5.1); SODIUM 138 mmol/L (136-145); TOTAL PROTEIN 6.4 g/dL (6.4-8.2); eGFR NON BLACK RACES > 60 (>60)
[2025-01-23 06:53] LABS: ANISOCYTOSIS SLIGHT; OVALOCYTES SLIGHT; PLATELET MORPHOLOGY COMMENT NORMAL (NORMAL); SCHISTOCYTES SLIGHT
[2025-01-23 06:54] LABS: MICROCYTOSIS SLIGHT
[2025-01-23] MEDS: PULMICORT NEB TX 0.5 MG NEB SCH (08:20)
--- NOTE | 2025-01-23 09:25 | DR.H&P ---
H&P History & Physical for Day of: H&P Date: 01/23/25 Chief Complaint Chief Complaint: Dyspnea History of Present Illness History of Present Illness: Patient mated through the ER from home due to worsening shortness of breath and dyspnea. Found to have acutely worsened anemia, bilateral pleural effusions (right greater than left), and dense pneumonia of the right lower lobe. There is concern on the x-ray and CT for a mass with the pneumonia. He has no reported history of lung cancer. Labs consistent with iron deficiency anemia with his baseline normally between 9.5 and 10.2. This morning, patient seen with daughter, nurse, and case management at bedside. Reports he feels about the same as he did yesterday. Still very weak and short of breath. He is wearing oxygen and slightly more comfortable. 1 daughter was on the phone while the other was at bedside and asked about his slightly worsening anemia and what needs to be done with his CT findings. ROS: 12 point ROS negative except as noted in HPI PE: Elderly male in no acute distress. Heart regular rate and rhythm. Lungs greatly diminished at right base but clear otherwise. Bowel sounds present. Moves all extremities equally well. He is able to stand with some assistance. Turgor decreased but skin color appropriate. Past Medical History Past Medical History: CVA, Diabetes, Dyslipidemia, Hypertension and CT Past Surgical History Surgical History: Angioplasty/Stents Family History Family Medical History: Diabetes Mellitus Social History Does patient currently use any type of tobacco product: No Have you used tobacco products in the last 12 months: No Type of Tobacco Use: None Does any household member use tobacco: No Alcohol Use: None Drug Use: None Medications Home Medications: Home Medications Medication Instructions Recorded Confirmed Type atorvastatin 80 mg tablet 40 mg PO HS 10/10/22 01/22/25 History carvedilol 25 mg tablet 0.5 tab PO BID 10/10/22 01/22/25 History doxazosin 8 mg tablet 1 tab PO HS 10/10/22 01/22/25 History glipizide 5 mg tablet 5 mg PO BID 10/10/22 01/22/25 History losartan 100 mg tablet 100 mg PO DAILY 10/10/22 01/22/25 History metformin 500 mg tablet 1 tab PO BID 10/10/22 01/22/25 History docusate sodium 100 mg capsule 200 mg PO BID 01/22/25 01/22/25 History (Colace) levofloxacin 500 mg tablet 500 mg PO QDAY 01/22/25 01/22/25 History methylprednisolone 4 mg tablets in See Rx Instructions .Route .COMPLEX 01/22/25 01/22/25 History a dose pack Allergies Allergies Allergy/AdvReac Type Severity Reaction Status Date / Time No Known Drug Allergies Allergy Verified 01/22/25 15:26 Labs 01/23/25 05:48 01/23/25 05:48 Labs: 01/22/25 22:00 Sputum - Expectorated Sputum - Final Laboratory WBC 11.6 X10^3/uL (3.6-10.0) H 01/23/25 05:48 RBC 3.31 X10^6/uL (4.7-6.0) L 01/23/25 05:48 Hgb 7.4 g/dL (13.5-18.0) L 01/23/25 05:48 Hct 24.1 % (42.0-54.0) L 01/23/25 05:48 MCV 72.6 fL (80.0-100.0) L 01/23/25 05:48 MCH 22.5 pg (27.0-34.0) L 01/23/25 05:48 MCHC 30.9 g/dL (33.0-35.0) L 01/23/25 05:48 RDW 17.8 % (11.6-16.5) H 01/23/25 05:48 Plt Count 440 X10^3/uL (150.0-450.0) 01/23/25 05:48 Plt Count Comment Adequate (ADEQUATE) 01/23/25 05:48 MPV 7.0 fL (7.4-11.0) L 01/23/25 05:48 Neut % (Auto) 79.3 % (42.0-75.0) H 01/23/25 05:48 Lymph % (Auto) 9.7 % (21.0-51.0) L 01/23/25 05:48 [place] % (Auto) 9.7 % (0.0-13.0) 01/23/25 05:48 Eos % (Auto) 1.1 % (0.9-2.9) 01/23/25 05:48 Baso % (Auto) 0.2 % (0.2-1.0) 01/23/25 05:48 Neut # (Auto) 9.2 x10^3/uL (2.2-4.8) H 01/23/25 05:48 Lymph # (Auto) 1.1 X10^3/uL (1.3-2.9) L 01/23/25 05:48 [place] # (Auto) 1.1 x10^3/uL (0.3-0.8) H 01/23/25 05:48 Eos # (Auto) 0.1 x10^3/uL (0.0-0.2) 01/23/25 05:48 Baso # (Auto) 0.0 X10^3/uL (0.0-0.1) 01/23/25 05:48 Absolute Nucleated RBC 0.1 /100WBC 01/23/25 05:48 Plt Morphology Comment Normal (NORMAL) 01/23/25 05:48 RBC Morphology Abnormal (NORMAL) 01/23/25 05:48 Hypochromasia 1+ A 01/22/25 15:22 Anisocytosis Slight A 01/23/25 05:48 Microcytosis Slight A 01/23/25 05:48 Ovalocytes Slight A 01/23/25 05:48 Schistocytes Slight A 01/23/25 05:48 PT 15.8 SECONDS (11.8-14.3) 01/22/25 15:22 INR Target Range - 01/22/25 15:22 INR 1.29 (0.8-1.3) 01/22/25 15:22 APTT 34.4 SECONDS (22.9-36.5) 01/22/25 15:22 PTT Comment - 01/22/25 15:22 D-Dimer 1.74 ug/ml (0.0-0.57) H 01/22/25 15:22 Sodium 138 mmol/L (136-145) 01/23/25 05:48 Corrected Sodium TNP 01/23/25 05:48 Potassium 4.8 mmol/L (3.5-5.1) 01/23/25 05:48 Chloride 102 mmol/L (98-107) 01/23/25 05:48 Carbon Dioxide 32.2 mmol/L (21-32) H 01/23/25 05:48 BUN 23 mg/dL (7-18) H 01/23/25 05:48 Creatinine 1.01 mg/dL (0.70-1.30) 01/23/25 05:48 Est GFR (MDRD) Af Amer > 60 (>60) 01/23/25 05:48 Est GFR (MDRD) Non-Af > 60 (>60) 01/23/25 05:48 Glucose 81 mg/dL (65-99) 01/23/25 05:48 Lactic Acid 1.4 mmol/L (0.4-2.0) 01/22/25 15:22 Calcium 8.4 mg/dL (8.5-10.1) L 01/23/25 05:48 Corrected Calcium 10.0 mg/dL (8.5-10.1) 01/23/25 05:48 Magnesium 2.3 mg/dL (2.0-2.9) 01/23/25 05:48 Total Bilirubin 0.20 mg/dL (0.2-1.0) 01/23/25 05:48 AST 10 Units/L (15-37) L 01/23/25 05:48 ALT 10 Units/L (12-78) L 01/23/25 05:48 Alkaline Phosphatase 74 Units/L (46-116) 01/23/25 05:48 Creatine Kinase 24 Units/L (39-308) L 01/22/25 15:22 Troponin I High Sens < 4.0 ng/L (4.0-60.0) L 01/22/25 15:22 B-Natriuretic Peptide 167 pg/mL (0-79) H 01/22/25 15:22 Total Protein 6.4 g/dL (6.4-8.2) 01/23/25 05:48 Albumin 2.0 g/dL (3.4-5.0) L 01/23/25 05:48 Globulin 4.4 g/dL (2.5-4.5) 01/23/25 05:48 Albumin/Globulin Ratio 0.5 Ratio (1.1-2.1) L 01/23/25 05:48 Physical Exam Vital Signs: Vital Signs Temperature 98.7 F Temperature 98.9 F Pulse Rate [Brachial] 67 Pulse Rate [Brachial] 61 Pulse Rate 67 Pulse Rate 67 Respiratory Rate 18 Respiratory Rate 19 Blood Pressure [Left Arm] 143/62 Blood Pressure [Left Arm] 118/59 Blood Pressure 137/61 O2 Sat by Pulse Oximetry 95 O2 Sat by Pulse Oximetry 95 O2 Sat by Pulse Oximetry 94 O2 Sat by Pulse Oximetry 100 Assessment/Plan (1) Severe sepsis: Narrative Support Text: DuoNebs, IV antibiotics, fluid support. Status: Acute (2) Community acquired pneumonia: Qualifiers: Laterality: right Lung location: middle lobe of lung Qualified Code(s): J18.9 - Pneumonia, unspecified organism Narrative Support Text: See above. Status: Acute (3) Acute hypoxic respiratory failure: Narrative Support Text: O2 supplementation. See above. Status: Acute (4) Pleural effusion: Narrative Support Text: Consult surgery for possible drainage. Status: Acute (5) Atherosclerotic heart disease of [place] coronary artery without angina pectoris: Qualifiers: [place] vs. transplanted heart: [place] heart Qualified Code(s): I25.10 - Atherosclerotic heart disease of [place] coronary artery without angina pectoris Narrative Support Text: Continue home meds. Status: Acute (6) ALFREDO (iron deficiency anemia): Qualifiers: Iron deficiency anemia type: unspecified iron deficiency Qualified Code(s): D50.9 - Iron deficiency anemia, unspecified Narrative Support Text: Hemoccult of stool. Status: Acute (7) Type 2 diabetes mellitus with diabetic chronic kidney disease: Qualifiers: Diabetes mellitus long-term insulin use: without terminal operations manager use Chronic kidney disease stage: stage 2 (GFR 60-89) Qualified Code(s): E11.22 - Type 2 diabetes mellitus with diabetic chronic kidney disease; N18.2 - Chronic kidney disease, stage 2 (mild) Narrative Support Text: Continue current. Status: Acute
[2025-01-23] MEDS: VISBIOME PROBIOTIC CAP 112.5 B or equivalent PO SCH (10:28)
[2025-01-23] MEDS: ROBITUSSIN DM PO PRN (11:26)
[2025-01-23] MEDS ORDERED: DILAUDID INJ ONE (12:47)
[2025-01-23] MEDS ORDERED: VERSED ONE (12:47)
[2025-01-23] MEDS: DILAUDID INJ IVP PRN (13:00)
[2025-01-23] MEDS: VERSED IVP ONE (13:00)
--- NOTE | 2025-01-23 13:48 | RAD ---
EXAM:CHEST, 1 VIEWHISTORY:POST THORACENTESIS;COMPARISON:No relevant prior studies were available for comparison at the time of interpretation.TECHNIQUE:CHEST, 1 VIEWFINDINGS:Chest:Lines and tubes: NoneMediastinum: Cardiac and mediastinal shadow is within normal limits for size and contour.Pulmonary vessels: No pulmonary vascular congestion.Lung pruitt: Hazy opacity of the right lung basePleura: Reduction in right pleural effusionBones and soft tissues: No acute osseous or soft tissue abnormality.IMPRESSION:1. Persistent opacity of the right lung base suggests pneumonia2. Reduction in right pleural effusion3. No postprocedural pneumothoraxTHIS IS AN ELECTRONICALLY VERIFIED FINAL REPORT01/23/2025 1:44 PM - Electronically signed by Charlie Leger MD
[2025-01-23] MEDS: ASPIRIN 81 MG CHEWTAB PO SCH (13:59)
[2025-01-23] MEDS: COREG TAB 25 MG PO SCH (14:00)
[2025-01-23] MEDS: CLARITIN PO SCH (14:01)
[2025-01-23] MEDS: GLUCOTROL PO SCH (14:01)
[2025-01-23] MEDS ORDERED: NS 1/2 1,000 ML IV 1,000 ML IV ONE (14:38)
[2025-01-23] MEDS: NovoLIN R (or HumuLIN R) SUBCUT PRN (18:55)
[2025-01-23] MEDS: NS 500 ML IV 500 ML IV ONE (19:58)
[2025-01-23] MEDS: OMNIPAQUE 350 mg/mL 100 mL BTL 100 ML ONE (19:58)
[2025-01-23] MEDS: ROCEPHIN VIAL 1 GRAM ONE (19:59)
[2025-01-23] MEDS: NS 1/2 1,000 ML IV 1,000 ML IV ONE (19:59)
[2025-01-23] MEDS: XOPENEX 1.25 MG/3 ML NEBULE NEB ONE (20:00)
[2025-01-23] MEDS ORDERED: SNACK - Diabetic Appropriate PO SCH (20:00)
[2025-01-23] MEDS: LIPITOR TAB 40 MG PO SCH (20:55)
[2025-01-23] MEDS: SNACK - Diabetic Appropriate PO SCH (20:55)
[2025-01-23] MEDS: COLACE CAP 100 MG PO SCH (20:56)
[2025-01-23] MEDS: CARDURA PO SCH (20:57)
[2025-01-24] MEDS ORDERED: NS 1/2 1,000 ML IV 1,000 ML IV ONE ×2 (04:16→22:23)
[2025-01-24 06:26] LABS: BASOPHILS % (AUTO) 0.5 % (0.2-1.0); EOSINOPHILS # (AUTO) 0.4 x10^3/uL (0.0-0.2); EOSINOPHILS % (AUTO) 4.3 % (0.9-2.9); HEMATOCRIT 20.4 % (42.0-54.0); LYMPHOCYTES # (AUTO) 1.1 X10^3/uL (1.3-2.9); LYMPHOCYTES % (AUTO) 12.1 % (21.0-51.0); MEAN CORPUSCULAR HEMOGLOBIN 23.2 pg (27.0-34.0); MEAN CORPUSCULAR HGB CONC 31.8 g/dL (33.0-35.0); MEAN CORPUSCULAR VOLUME 72.9 fL (80.0-100.0); MEAN PLATELET VOLUME 7.2 fL (7.4-11.0); MONOCYTES # (AUTO) 1.1 x10^3/uL (0.3-0.8); MONOCYTES % (AUTO) 11.9 % (0.0-13.0); NEUTROPHILS # (AUTO) 6.3 x10^3/uL (2.2-4.8); NEUTROPHILS % (AUTO) 71.2 % (42.0-75.0); PLATELET COUNT 369 X10^3/uL (150.0-450.0); RED CELL DISTRIBUTION WIDTH 17.7 % (11.6-16.5); WHITE BLOOD COUNT 8.8 X10^3/uL (3.6-10.0)
[2025-01-24 06:30] LABS: ALANINE AMINOTRANSFERASE 7 Units/L (12-78); ALBUMIN 1.4 g/dL (3.4-5.0); ALKALINE PHOSPHATASE 58 Units/L (46-116); ASPARTATE AMINO TRANSFERASE 11 Units/L (15-37); BLOOD UREA NITROGEN 14 mg/dL (7-18); CALCIUM 7.5 mg/dL (8.5-10.1); CARBON DIOXIDE 30.7 mmol/L (21-32); CHLORIDE 103 mmol/L (98-107); COR CA(FOR HYPOALB) 9.6 mg/dL (8.5-10.1); CREATININE 1.11 mg/dL (0.70-1.30); GLUCOSE 56 mg/dL (65-99); POTASSIUM 4.4 mmol/L (3.5-5.1); SODIUM 136 mmol/L (136-145); TOTAL PROTEIN 5.2 g/dL (6.4-8.2); eGFR NON BLACK RACES > 60 (>60)
[2025-01-24 06:56] LABS: HEMOGLOBIN 6.5 g/dL (13.5-18.0)
[2025-01-24 07:00] LABS: HYPOCHROMASIA SLIGHT; MICROCYTOSIS SLIGHT; PLATELET MORPHOLOGY COMMENT NORMAL (NORMAL)
--- NOTE | 2025-01-24 08:38 | RAD ---
EXAM:Portable chestHISTORY:Follow-up pneumoniaCOMPARISON:01/23/2025FINDINGS:H eart size is difficult to assess due to obscuration of the right heart border by increasing density in the right lower hemithorax which could be due to increasing right basilar pneumonia, atelectasis or combination. Remainder of the lung pruitt are free of acute infiltrates. Chronic appearing interstitial lung changes are present bilaterally. Right pleural effusion is not excluded. Bony thorax is unremarkable.IMPRESSION:Increasing density in the right lower hemithorax now obscuring the right heart border and possibly due to increasing right middle and right lower lobe pneumonia, atelectasis or both.Diffuse chronic interstitial lung changesPossible small right pleural effusionTHIS IS AN ELECTRONICALLY VERIFIED FINAL REPORT01/24/2025 8:35 AM - Electronically signed by Jose Gage MD
[2025-01-24] MEDS: COZAAR PO SCH (09:10)
--- NOTE | 2025-01-24 12:21 | NOTE.SOAP ---
Soap Note Note for Day of Date of Exam: 01/24/25 Subjective Data Subjective Data: No overnight events. Hemoglobin 6.5 this morning. Was able to eat breakfast off oxygen. Still sore on both sides of his chest with the right worse than left. Did have a thoracentesis yesterday with cytology pending. Objective Data Objective Data: Elderly male in no acute distress. Hearing intact to conversation. Heart regular rate and rhythm. Lung sounds absent on the right and to midway up with wheezing otherwise. Mood and affect appropriate. Assessment Assessment: 1. Acute hypoxemic respiratory failure. 2. Severe sepsis due to RLL PNA 3. Acute on chronic anemia. 4. Suspected right lower lobe mass. Plan Plan: Transfuse 2 units PRBCs today. Continue DuoNebs, O2 supplementation, antibiotics, deep breathing. Monitor labs and vitals closely. Pleural fluid cytology pending.
[2025-01-24] MEDS: NORCO 5/325 MG TAB PO PRN (13:03)
[2025-01-24] MEDS: NS 500 ML IV 500 ML IV ONE (14:25)
[2025-01-24] MEDS ORDERED: NS 250 ML IV 250 ML IV ONE (17:17)
[2025-01-24] MEDS: TYLENOL 325 MG TAB PO PRN (17:27)
[2025-01-24 17:42] LABS: MAGNESIUM 1.9 mg/dL (2.0-2.9); POTASSIUM 4.6 mmol/L (3.5-5.1)
[2025-01-24] MEDS: TYLENOL 325 MG TAB PO ONE (17:52)
[2025-01-24] MEDS ORDERED: CONSULT PHARMACY - POTASSIUM & MAGNESIUM XX SCH (18:00)
[2025-01-24] MEDS: MAG-OX TAB PO SCH (20:31)
[2025-01-25 03:16] LABS: BASOPHILS # (AUTO) 0.1 X10^3/uL (0.0-0.1); BASOPHILS % (AUTO) 0.4 % (0.2-1.0); EOSINOPHILS # (AUTO) 0.5 x10^3/uL (0.0-0.2); EOSINOPHILS % (AUTO) 3.3 % (0.9-2.9); HEMATOCRIT 25.6 % (42.0-54.0); HEMOGLOBIN 8.2 g/dL (13.5-18.0); LYMPHOCYTES # (AUTO) 1.1 X10^3/uL (1.3-2.9); LYMPHOCYTES % (AUTO) 7.6 % (21.0-51.0); MEAN CORPUSCULAR HEMOGLOBIN 23.7 pg (27.0-34.0); MEAN CORPUSCULAR HGB CONC 31.9 g/dL (33.0-35.0); MEAN CORPUSCULAR VOLUME 74.5 fL (80.0-100.0); MEAN PLATELET VOLUME 7.2 fL (7.4-11.0); MONOCYTES # (AUTO) 0.9 x10^3/uL (0.3-0.8); MONOCYTES % (AUTO) 6.2 % (0.0-13.0); NEUTROPHILS # (AUTO) 11.5 x10^3/uL (2.2-4.8); NEUTROPHILS % (AUTO) 82.5 % (42.0-75.0); PLATELET COUNT 350 X10^3/uL (150.0-450.0); RED BLOOD COUNT 3.44 X10^6/uL (4.7-6.0); RED CELL DISTRIBUTION WIDTH 18.8 % (11.6-16.5); WHITE BLOOD COUNT 13.9 X10^3/uL (3.6-10.0)
[2025-01-25 03:36] LABS: ALANINE AMINOTRANSFERASE 10 Units/L (12-78); ALBUMIN 1.5 g/dL (3.4-5.0); ALKALINE PHOSPHATASE 64 Units/L (46-116); ASPARTATE AMINO TRANSFERASE 13 Units/L (15-37); BLOOD UREA NITROGEN 15 mg/dL (7-18); CALCIUM 7.4 mg/dL (8.5-10.1); CARBON DIOXIDE 29.6 mmol/L (21-32); CHLORIDE 100 mmol/L (98-107); COR CA(FOR HYPOALB) 9.4 mg/dL (8.5-10.1); COR NA(FOR HYPERGLY) 138 mmol/L (136-145); CREATININE 1.37 mg/dL (0.70-1.30); GLUCOSE 167 mg/dL (65-99); POTASSIUM 4.1 mmol/L (3.5-5.1); SODIUM 136 mmol/L (136-145); TOTAL PROTEIN 5.2 g/dL (6.4-8.2); eGFR NON BLACK RACES 53 (>60)
[2025-01-25 03:39] LABS: ANISOCYTOSIS SLIGHT; HYPOCHROMASIA 1+; MICROCYTOSIS SLIGHT; OVALOCYTES PRESENT; PLATELET MORPHOLOGY COMMENT NORMAL (NORMAL)
[2025-01-25 03:40] LABS: SCHISTOCYTES PRESENT
--- NOTE | 2025-01-25 08:02 | RAD ---
EXAM:Portable chestHISTORY:Follow-up pneumoniaCOMPARISON:01/24/2025FINDINGS:H eart size remains difficult to assess due to obscuration of the right heart border by abnormal parenchymal density in the right lung base which could be due to pleural effusion, atelectasis, or infiltrate or combination. It is slightly more prominent than on the prior examination. Remainder of the lung pruitt are free of acute infiltrates. Chronic appearing interstitial lung changes are present bilaterally and unchanged. Bony thorax is unremarkable.IMPRESSION:Slight increased density in the right lower hemithorax since the prior examination which could be due to right pleural effusion, consolidation, or atelectasis or combination.Diffuse chronic interstitial lung changes, stableTHIS IS AN ELECTRONICALLY VERIFIED FINAL REPORT01/25/2025 7:59 AM - Electronically signed by Jose Gage MD
[2025-01-25] MEDS: GLUCOPHAGE PO SCH (08:05)
[2025-01-25] MEDS: DULCOLAX SUPPOSITORY 10 MG RECTAL ONE (10:19)
[2025-01-25] MEDS: GLUCOPHAGE ONE ×2 (10:40→17:22)
[2025-01-25] MEDS: NS 1/2 1,000 ML IV 1,000 ML IV ONE (13:35)
--- NOTE | 2025-01-25 16:37 | NOTE.SOAP ---
Soap Note Note for Day of Date of Exam: 01/25/25 Subjective Data Subjective Data: No overnight events. 1 of lights criteria is met given serum versus pleural fluid protein levels. White count did bump up a little bit today. Blood pressure little soft this morning. Was able to eat supper and stay off oxygen for a little while yesterday evening. He would like to go home at discharge. Hemoglobin responded well to the 2 units. Objective Data Objective Data: Elderly male in no acute distress. Not currently wearing his nasal cannula. Heart regular rate and rhythm. Lung sounds still absent in the right base. Crackly at the left base. Bowel sounds are present and belly is soft and nontender. Assessment Assessment: 1. Severe sepsis secondary to community-acquired pneumonia. Improving. 2. Acute hypoxemic respiratory failure, improving. 3. Concern for mass in the right lower lobe. Acute. 4. Acute on chronic anemia. Improved. Plan Plan: Continue O2 supplementation, nebs, and antibiotics. Ambulate as tolerated. Likely will go home tomorrow on oxygen. Continue to monitor labs and vitals. Hold Coreg this morning.
[2025-01-26] MEDS: NS 1/2 1,000 ML IV 1,000 ML IV ONE (06:18)
[2025-01-26] MEDS: GLUCOPHAGE ONE (06:19)
[2025-01-26 06:26] LABS: BASOPHILS % (AUTO) 0.3 % (0.2-1.0); EOSINOPHILS # (AUTO) 0.6 x10^3/uL (0.0-0.2); HEMATOCRIT 25.1 % (42.0-54.0); LYMPHOCYTES # (AUTO) 1.1 X10^3/uL (1.3-2.9); LYMPHOCYTES % (AUTO) 9.4 % (21.0-51.0); MEAN CORPUSCULAR HEMOGLOBIN 23.7 pg (27.0-34.0); MEAN CORPUSCULAR HGB CONC 31.9 g/dL (33.0-35.0); MEAN CORPUSCULAR VOLUME 74.5 fL (80.0-100.0); MEAN PLATELET VOLUME 7.1 fL (7.4-11.0); MONOCYTES # (AUTO) 1.2 x10^3/uL (0.3-0.8); MONOCYTES % (AUTO) 10.3 % (0.0-13.0); NEUTROPHILS # (AUTO) 9.1 x10^3/uL (2.2-4.8); PLATELET COUNT 324 X10^3/uL (150.0-450.0); RED BLOOD COUNT 3.38 X10^6/uL (4.7-6.0); RED CELL DISTRIBUTION WIDTH 19.1 % (11.6-16.5); WHITE BLOOD COUNT 12.1 X10^3/uL (3.6-10.0)
[2025-01-26 06:33] LABS: ALANINE AMINOTRANSFERASE 12 Units/L (12-78); ALBUMIN 1.4 g/dL (3.4-5.0); ALKALINE PHOSPHATASE 74 Units/L (46-116); ASPARTATE AMINO TRANSFERASE 12 Units/L (15-37); BLOOD UREA NITROGEN 11 mg/dL (7-18); CALCIUM 7.6 mg/dL (8.5-10.1); CARBON DIOXIDE 27.6 mmol/L (21-32); CHLORIDE 104 mmol/L (98-107); COR CA(FOR HYPOALB) 9.7 mg/dL (8.5-10.1); CREATININE 1.03 mg/dL (0.70-1.30); POTASSIUM 3.9 mmol/L (3.5-5.1); SODIUM 138 mmol/L (136-145); TOTAL PROTEIN 5.3 g/dL (6.4-8.2); eGFR NON BLACK RACES > 60 (>60)
[2025-01-26 06:37] LABS: GLUCOSE 46 mg/dL (65-99)
[2025-01-26 07:08] LABS: ANISOCYTOSIS SLIGHT; HYPOCHROMASIA 1+; MICROCYTOSIS SLIGHT; PLATELET MORPHOLOGY COMMENT NORMAL (NORMAL)
[2025-01-26 07:09] LABS: OVALOCYTES PRESENT; SCHISTOCYTES PRESENT
--- NOTE | 2025-01-26 09:41 | PCM.DCPLAN ---
DISCHARGE SUMMARY Admission Date Date of Admission: 01/22/25 Discharge Date Discharge Date: 01/26/25 Admission Diagnoses (1) Severe sepsis: Status: Acute (2) Community acquired pneumonia: Status: Acute (3) Acute hypoxic respiratory failure: Status: Acute (4) Pleural effusion: Status: Acute (5) Atherosclerotic heart disease of [place] coronary artery without angina pectoris: Status: Acute (6) ALFREDO (iron deficiency anemia): Status: Acute (7) Type 2 diabetes mellitus with diabetic chronic kidney disease: Status: Acute Discharge Medications Discharge Medications: Home Medication List docusate sodium 100 mg capsule (Colace) 200 mg PO BID 01/22/25 [History] levofloxacin 500 mg tablet 500 mg PO QDAY 01/22/25 [History] methylprednisolone 4 mg tablets in a dose pack See Rx Instructions .Route .COMPLEX 01/22/25 [History] Prescriptions: Hospital Course Vital Signs: Vital Signs Temperature 98.7 F Temperature 98.9 F Pulse Rate [Brachial] 79 Pulse Rate [Brachial] 77 Respiratory Rate 20 Respiratory Rate 18 Blood Pressure [Left Arm] 132/60 Blood Pressure [Left Arm] 107/56 O2 Sat by Pulse Oximetry 98 O2 Sat by Pulse Oximetry 97 Latest Lab Results: Laboratory Last Values WBC 13.9 X10^3/uL (3.6-10.0) H 01/25/25 02:53 RBC 3.44 X10^6/uL (4.7-6.0) L 01/25/25 02:53 Hgb 8.2 g/dL (13.5-18.0) L 01/25/25 02:53 Hct 25.6 % (42.0-54.0) L 01/25/25 02:53 MCV 74.5 fL (80.0-100.0) L 01/25/25 02:53 MCH 23.7 pg (27.0-34.0) L 01/25/25 02:53 MCHC 31.9 g/dL (33.0-35.0) L 01/25/25 02:53 RDW 18.8 % (11.6-16.5) H 01/25/25 02:53 Plt Count 350 X10^3/uL (150.0-450.0) 01/25/25 02:53 Plt Count Comment Adequate (ADEQUATE) 01/25/25 02:53 MPV 7.2 fL (7.4-11.0) L 01/25/25 02:53 Neut % (Auto) 82.5 % (42.0-75.0) H 01/25/25 02:53 Lymph % (Auto) 7.6 % (21.0-51.0) L 01/25/25 02:53 [place] % (Auto) 6.2 % (0.0-13.0) 01/25/25 02:53 Eos % (Auto) 3.3 % (0.9-2.9) H 01/25/25 02:53 Baso % (Auto) 0.4 % (0.2-1.0) 01/25/25 02:53 Neut # (Auto) 11.5 x10^3/uL (2.2-4.8) H 01/25/25 02:53 Lymph # (Auto) 1.1 X10^3/uL (1.3-2.9) L 01/25/25 02:53 [place] # (Auto) 0.9 x10^3/uL (0.3-0.8) H 01/25/25 02:53 Eos # (Auto) 0.5 x10^3/uL (0.0-0.2) H 01/25/25 02:53 Baso # (Auto) 0.1 X10^3/uL (0.0-0.1) 01/25/25 02:53 Absolute Nucleated RBC 0.0 /100WBC 01/25/25 02:53 Plt Morphology Comment Normal (NORMAL) 01/25/25 02:53 RBC Morphology Abnormal (NORMAL) 01/25/25 02:53 Hypochromasia 1+ A 01/25/25 02:53 Anisocytosis Slight A 01/25/25 02:53 Microcytosis Slight A 01/25/25 02:53 Ovalocytes Present 01/25/25 02:53 Schistocytes Present 01/25/25 02:53 PT 15.8 SECONDS (11.8-14.3) 01/22/25 15:22 INR Target Range - 01/22/25 15:22 INR 1.29 (0.8-1.3) 01/22/25 15:22 APTT 34.4 SECONDS (22.9-36.5) 01/22/25 15:22 PTT Comment - 01/22/25 15:22 D-Dimer 1.74 ug/ml (0.0-0.57) H 01/22/25 15:22 Sodium 138 mmol/L (136-145) 01/26/25 05:27 Corrected Sodium TNP 01/26/25 05:27 Potassium 3.9 mmol/L (3.5-5.1) 01/26/25 05:27 Chloride 104 mmol/L (98-107) 01/26/25 05:27 Carbon Dioxide 27.6 mmol/L (21-32) 01/26/25 05:27 BUN 11 mg/dL (7-18) 01/26/25 05:27 Creatinine 1.03 mg/dL (0.70-1.30) 01/26/25 05:27 Est GFR (MDRD) Af Amer > 60 (>60) 01/26/25 05:27 Est GFR (MDRD) Non-Af > 60 (>60) 01/26/25 05:27 Glucose 46 mg/dL (65-99) L* 01/26/25 05:27 POC Glucose (mg/dL) 79 mg/dL (65-99) 01/26/25 06:19 Lactic Acid 1.4 mmol/L (0.4-2.0) 01/22/25 15:22 Calcium 7.6 mg/dL (8.5-10.1) L 01/26/25 05:27 Corrected Calcium 9.7 mg/dL (8.5-10.1) 01/26/25 05:27 Magnesium 1.9 mg/dL (2.0-2.9) L 01/24/25 17:23 Total Bilirubin 0.50 mg/dL (0.2-1.0) 01/26/25 05:27 AST 12 Units/L (15-37) L 01/26/25 05:27 ALT 12 Units/L (12-78) 01/26/25 05:27 Alkaline Phosphatase 74 Units/L (46-116) 01/26/25 05:27 Creatine Kinase 24 Units/L (39-308) L 01/22/25 15:22 Troponin I High Sens < 4.0 ng/L (4.0-60.0) L 01/22/25 15:22 B-Natriuretic Peptide 167 pg/mL (0-79) H 01/22/25 15:22 Total Protein 5.3 g/dL (6.4-8.2) L 01/26/25 05:27 Albumin 1.4 g/dL (3.4-5.0) L 01/26/25 05:27 Globulin 3.9 g/dL (2.5-4.5) 01/26/25 05:27 Albumin/Globulin Ratio 0.4 Ratio (1.1-2.1) L 01/26/25 05:27 Fluid pH 8 01/23/25 14:11 Fluid Glucose 114 01/23/25 14:11 Fluid Total Protein 4.2 01/23/25 13:26 Stl Occult Blood (IFOB) Negative (NEGATIVE) 01/25/25 11:27 Resp Viral Panel (PCR) See scanned report 01/22/25 21:35 Cytology See comment. 01/23/25 14:11 Blood Type A POSITIVE 01/24/25 09:10 Antibody Screen Negative 01/24/25 09:10 Crossmatch See Detail 01/24/25 09:10 Hospital Course: Patient admitted with respiratory failure and severe sepsis due to a right lower lobe pneumonia. He did undergo thoracentesis with some pleural cytology still p ending. 1 of 3 lights criteria was met with concern for right lower lobe abscess versus mass. He will have follow-up with his PCP outpatient for repeat chest CT. He has been discharged with home health, O2, antibiotics, steroids, and nebs. He will plan to go to pulmonary rehab following that. He did require 2 units of PRBCs during his admission due to acute on chronic anemia. Anemia was thought to be a combination of chronic disease, acute sepsis, and possible malignancy. Family was very involved in care and kept apprised of situation.
[2025-01-26 10:12] VITALS: O2SAT 95
[2025-01-26 14:11] VITALS: BP 106/51; PULSE 69; RESP 18; TEMP 98.8
== END 2025-01-26 14:40 | disposition home health service (06) | DRG 193 ==
LOC: ER 15:01 → MED/SURG 19:12
PROVIDERS: ADMIT Family Medicine; ATTEND Family Medicine
DX: E11.22 Type 2 diabetes mellitus with diabetic chronic kidney disease; I12.9 Hypertensive chronic kidney disease with stage 1 through stage 4 chronic kidney disease, or unspecified chronic kidney disease; Z86.73 Personal history of transient ischemic attack (TIA), and cerebral infarction without residual deficits; R26.89 Other abnormalities of gait and mobility; J18.8 Other pneumonia, unspecified organism; J90 Pleural effusion, not elsewhere classified; D50.8 Other iron deficiency anemias; R25.2 Cramp and spasm; Z60.8 Other problems related to social environment; R79.1 Abnormal coagulation profile; R94.31 Abnormal electrocardiogram [ECG] [EKG]; E11.649 Type 2 diabetes mellitus with hypoglycemia without coma; R00.1 Bradycardia, unspecified; B95.7 Other staphylococcus as the cause of diseases classified elsewhere; N18.2 Chronic kidney disease, stage 2 (mild); I25.10 Atherosclerotic heart disease of native coronary artery without angina pectoris; J96.01 Acute respiratory failure with hypoxia; E87.5 Hyperkalemia